=== PATIENT | female | born 1955 | race Caucasian/White ===

== ENCOUNTER 2018-03-04 06:50 | Inpatient (IN) | payer MEDICARE, MEDICAID ==
[2018-03-04] MEDS ORDERED: Sodium Chloride 0.9% 10 ML Syringe FLUSH PRN (07:20)
[2018-03-04 07:52] LABS: CHLORIDE,CL 112 mmol/L (98-107); SODIUM,NA 150 mmol/L (136-145)
[2018-03-04] MEDS ORDERED: Sodium Chloride 0.9% 1,000 ML IV ONE (08:22)
--- NOTE | 2018-03-04 09:10 | EDM.PDOC ---
ED HPI GENERAL MEDICAL PROBLEM - General Chief Complaint: General Stated Complaint: falls, weak, lethargic Time Seen by Provider: 03/04/18 06:55 Source of Information: Reports: EMS, [facility] Records - History of Present Illness INITIAL COMMENTS - FREE TEXT/NARRATIVE: [facility] calls with reports of patient having increased weakness, multpile falls, reduced appetite and general weakness. She does not report chest pain, pressure, shortness of breath, abdominal pain, headache. She normally uses a walker to ambulate, however she is now requiring 2 person transfer. She has history of anoxic brain injury, pacemaker, seizers, anxiety, history of electrolyte imbalances including hypo magnesemia, dementia, schizoaffective disorder, GERD, hyperlipidemia. Her sister is her POA and states that she did have a period where she was suffering lithium toxicity and she was taken off of this completely causing a psychotic episode. This was done in [place] at [facility] and she refuses to allow Summer to be sent there again. Onset: Gradual - Related Data Allergies Allergy/AdvReac Type Severity Reaction Status Date / Time lactose Allergy Other Verified 03/04/18 07:08 Home Meds: Home Meds Acetaminophen [Tylenol] 325 mg PO Q4H PRN 08/11/15 [History] Bisacodyl 10 mg RC ASDIRECTED PRN 08/11/15 [History] Bisacodyl [Dulcolax] 5 mg PO ASDIRECTED PRN 08/11/15 [History] Docusate Sodium 100 mg PO BID 08/11/15 [History] Fluticasone Propionate [Flonase] 0 gm NASBOTH DAILY 08/11/15 [History] LORazepam [Ativan] 0.5 mg PO BID PRN 08/11/15 [History] [place] Carbonate 300 mg PO BID 08/11/15 [History] Loratadine 10 mg PO DAILY 08/11/15 [History] Mag Hydrox/Al Hydrox/Simeth [Rulox] 355 ml PO QID PRN 08/11/15 [History] Magnesium Hydroxide [Milk of Magnesia] 30 ml PO ASDIRECTED PRN 08/11/15 [History ] Magnesium Oxide 500 mg PO BID 08/11/15 [History] OLANZapine [ZyPREXA] 10 mg PO BID 08/11/15 [History] Omeprazole 20 mg PO DAILY 08/11/15 [History] Rivastigmine [Exelon] 1 each TD DAILY 08/11/15 [History] carBAMazepine [TEGretol XR] 300 mg PO DAILY 08/11/15 [History] carBAMazepine [Tegretol XR] 2 tab PO DAILY 08/11/15 [History] cloZAPine 3 tab PO DAILY 08/11/15 [History] lamoTRIgine [Lamotrigine] 300 mg PO BID 08/11/15 [History] Past Medical History Other HEENT History: chronic rhinitis, exophoria Cardiovascular History: Reports: High Cholesterol, Other (See Below) Other Cardiovascular History: bradycardia Gastrointestinal History: Reports: Chronic Constipation, GERD Other Gastrointestinal History: disorder of intestinal carbohydrate absorption Genitourinary History: Reports: Urinary Incontinence Other Neuro History: cognitive impairment, traumatic brain injury, anoxic brain damage, impulse disorder Psychiatric History: Reports: Anxiety, Dementia, Depression, Eating Disorders, Suicide Attempt Other Psychiatric History: schiozoaffective disorder. Conversion disorder. impulse disorder. personality disorder Social & Family History - Tobacco Use Smoking Status *Q: Unknown Ever Smoked ED ROS GENERAL - Review of Systems Review Of Systems: See Below Constitutional: Reports: Decreased Appetite HEENT: Reports: No Symptoms Respiratory: Reports: No Symptoms Cardiovascular: Reports: No Symptoms Endocrine: Reports: No Symptoms GI/Abdominal: Reports: No Symptoms : Reports: No Symptoms Musculoskeletal: Reports: No Symptoms Skin: Reports: No Symptoms Neurological: Reports: Weakness, Other (recent falls) Psychiatric: Reports: No Symptoms Hematologic/Lymphatic: Reports: No Symptoms Immunologic: Reports: No Symptoms ED EXAM, GENERAL - Physical Exam Exam: See Below Exam Limited By: Other (dementia, some history is not accurate) General Appearance: Alert, WD/WN, No Apparent Distress Eye Exam: Bilateral Eye: EOMI, Normal Inspection, PERRL Ears: Normal TMs Nose: Normal Inspection, Normal Mucosa, No Blood Throat/Mouth: Normal Inspection, Normal Lips, Normal Teeth, Normal Gums, Normal Oropharynx, Normal Voice, No Airway Compromise Head: Atraumatic, Normocephalic Neck: Normal Inspection, Supple, Non-Tender, Full Range of Motion Respiratory/Chest: No Respiratory Distress, Lungs Clear, Normal Breath Sounds, No Accessory Muscle Use, Chest Non-Tender Cardiovascular: Normal Peripheral Pulses, Regular Rate, Rhythm, No Edema, No Gallop, No JVD, No Murmur, No Rub GI/Abdominal: Normal Bowel Sounds, Soft, Non-Tender, No Organomegaly, No Distention, No Abnormal Bruit, No Mass Extremities: Normal Inspection, Normal Range of Motion, Non-Tender, Normal Capillary Refill, No Pedal Edema Neurological: Alert, CN II-XII Intact, Abnormal Gait Psychiatric: Normal Affect, Normal Mood Skin Exam: Warm, Dry, Intact, Normal Color, No Rash Lymphatic: No Adenopathy Course - Vital Signs Last Recorded V/S: Last Vital Signs Temp 37.0 C 03/04/18 09:47 Pulse 67 03/04/18 09:47 Resp 16 03/04/18 09:47 BP 147/67 H 03/04/18 09:47 Pulse Ox 98 03/04/18 09:47 - Orders/Labs/Meds Orders: Active Orders 24 hr Category Date Time Status EKG Documentation Completion [RC] URGENT Care 03/04/18 08:16 Active Chest 2V [CR] Stat Exams 03/04/18 08:16 Taken Head wo Cont [CT] Stat Exams 03/04/18 08:16 Taken LITHIUM [REF] Stat Lab 03/04/18 07:16 Received URINALYSIS W/MICROSCOPIC [UA W/MICROSCOPIC] [URIN] Stat Lab 03/04/18 09:02 Ordered Sodium Chloride 0.9% [Saline Flush] Med 03/04/18 07:20 Active 10 ml FLUSH ASDIRECTED PRN Saline Lock Insert [OM.PC] Routine Oth 03/04/18 07:20 Ordered Medication Orders Sodium Chloride (Saline Flush) 10 ml FLUSH ASDIRECTED PRN PRN Reason: Keep Vein Open Labs: Laboratory Tests 03/04/18 03/04/18 03/04/18 Range/Units 07:16 07:16 07:16 WBC 13.8 H (4.0-10.0) x10^3/uL RBC 3.74 L (4.00-5.50) x10^6/uL Hgb 12.1 (12.0-16.0) g/dL Hct 40.1 (33.0-47.0) % MCV 107.2 H (78.0-93.0) fL MCH 32.4 H (26.0-32.0) pg MCHC 30.2 L (32.0-36.0) g/dL RDW Coeff of Neisha 13.0 (10.0-15.0) % Plt Count 328 (130-400) x10^3/uL Add Manual Diff Yes Neutrophils % (Manual) 74 (50-80) % Lymphocytes % (Manual) 13 L (25-50) % Monocytes % (Manual) 10 (2-11) % Eosinophils % (Manual) 3 (0-4) % Platelet Estimate Adequate Hypochromasia 1+ slight H Macrocytosis 1+ slight H Rouleaux 1+ slight H Sodium 150 H (136-145) mmol/L Potassium 3.9 (3.5-5.1) mmol/L Chloride 112 H (98-107) mmol/L Carbon Dioxide 30 (21-32) mmol/L Anion Gap 11.9 (10-20) mmol/L BUN 39 H (7-18) mg/dL Creatinine 1.9 H (0.55-1.02) mg/dL Est Cr Clr Drug Dosing TNP Estimated GFR (MDRD) 27 Glucose 94 (74-106) mg/dL Lactic Acid 1.6 (0.4-2.0) mmol/L Calcium 11.4 H (8.5-10.1) mg/dL Corrected Calcium 11.64 H (8.5-10.1) mg/dL Magnesium 3.3 H (1.8-2.4) mg/dL Total Bilirubin 0.3 (0.2-1.0) mg/dL AST 15 (15-37) U/L ALT 21 (14-59) U/L Alkaline Phosphatase 130 H (46-116) U/L C-Reactive Protein < 0.2 (<=0.9) mg/dL NT-Pro-B Natriuret Pep 90 (<=125) pg/mL Total Protein 7.0 (6.4-8.2) g/dL Albumin 3.7 (3.4-5.0) g/dL Globulin 3.3 Albumin/Globulin Ratio 1.12 TSH, Ultra Sensitive 2.340 (0.358-3.74) uIU/mL Urine Color (YELLOW) Urine Appearance (CLEAR) Urine pH (5.0-8.0) Ur Specific [place] Urine Protein (NEGATIVE) mg/dL Urine Glucose (UA) (NEGATIVE) mg/dL Urine Ketones (NEGATIVE) mg/dL Urine Occult Blood (NEGATIVE) Urine Nitrite (NEGATIVE) Urine Bilirubin (NEGATIVE) Urine Urobilinogen (0.2) EU/dL Ur Leukocyte Esterase (NEGATIVE) Urine RBC (NOT SEEN) /HPF Urine WBC (NOT SEEN) /HPF Ur Squamous Epith Cells (NEGATIVE) /HPF Ur Transition Epith Cell (NEGATIVE) /HPF Urine Bacteria (NEGATIVE) /HPF Urine Mucus (NEGATIVE) /LPF 03/04/18 Range/Units 09:02 WBC (4.0-10.0) x10^3/uL RBC (4.00-5.50) x10^6/uL Hgb (12.0-16.0) g/dL Hct (33.0-47.0) % MCV (78.0-93.0) fL MCH (26.0-32.0) pg MCHC (32.0-36.0) g/dL RDW Coeff of Neisha (10.0-15.0) % Plt Count (130-400) x10^3/uL Add Manual Diff Neutrophils % (Manual) (50-80) % Lymphocytes % (Manual) (25-50) % Monocytes % (Manual) (2-11) % Eosinophils % (Manual) (0-4) % Platelet Estimate Hypochromasia Macrocytosis Rouleaux Sodium (136-145) mmol/L Potassium (3.5-5.1) mmol/L Chloride (98-107) mmol/L Carbon Dioxide (21-32) mmol/L Anion Gap (10-20) mmol/L BUN (7-18) mg/dL Creatinine (0.55-1.02) mg/dL Est Cr Clr Drug Dosing Estimated GFR (MDRD) Glucose (74-106) mg/dL Lactic Acid (0.4-2.0) mmol/L Calcium (8.5-10.1) mg/dL Corrected Calcium (8.5-10.1) mg/dL Magnesium (1.8-2.4) mg/dL Total Bilirubin (0.2-1.0) mg/dL AST (15-37) U/L ALT (14-59) U/L Alkaline Phosphatase (46-116) U/L C-Reactive Protein (<=0.9) mg/dL NT-Pro-B Natriuret Pep (<=125) pg/mL Total Protein (6.4-8.2) g/dL Albumin (3.4-5.0) g/dL Globulin Albumin/Globulin Ratio TSH, Ultra Sensitive (0.358-3.74) uIU/mL Urine Color Light yellow (YELLOW) Urine Appearance Clear (CLEAR) Urine pH 7.0 (5.0-8.0) Ur Specific [place] 1.015 Urine Protein 30 H (NEGATIVE) mg/dL Urine Glucose (UA) Negative (NEGATIVE) mg/dL Urine Ketones Negative (NEGATIVE) mg/dL Urine Occult Blood Trace-intact H (NEGATIVE) Urine Nitrite Negative (NEGATIVE) Urine Bilirubin Negative (NEGATIVE) Urine Urobilinogen 0.2 (0.2) EU/dL Ur Leukocyte Esterase Trace H (NEGATIVE) Urine RBC 0-5 (NOT SEEN) /HPF Urine WBC 0-5 (NOT SEEN) /HPF Ur Squamous Epith Cells Rare (NEGATIVE) /HPF Ur Transition Epith Cell Rare H (NEGATIVE) /HPF Urine Bacteria Rare (NEGATIVE) /HPF Urine Mucus Not seen (NEGATIVE) /LPF Meds: Medications Generic Name Dose Route Start Last Admin Trade Name Freq PRN Reason Stop Dose Admin Sodium Chloride 10 ml 03/04/18 07:20 Saline Flush FLUSH ASDIRECTED PRN Keep Vein Open Discontinued Medications Generic Name Dose Route Start Last Admin Trade Name Freq PRN Reason Stop Dose Admin Sodium Chloride 1,000 mls @ 999 mls/hr 03/04/18 08:22 03/04/18 08:51 Normal Saline IV 03/04/18 09:22 999 mls/hr ONETIME ONE Administration Departure - Departure Time of Disposition: 09:50 Disposition: Admitted As Inpatient 65 Condition: Good Clinical Impression: Dehydration, Acute hypernatremia, Hypermagnesemia - Discharge Information ED Communication - Discussed Case With (1) Discussed Case With (1): Admitting Provider (Dr. Gramajo contacted. He will admit the patient inpatient with Dr. Galvez to assume care tomorrow) - My Orders Last 24 Hours: My Active Orders 03/04/18 07:16 LITHIUM [REF] Stat 03/04/18 07:20 Sodium Chloride 0.9% [Saline Flush] 10 ml FLUSH ASDIRECTED PRN Saline Lock Insert [OM.PC] Routine 03/04/18 08:16 EKG Documentation Completion [RC] URGENT Chest 2V [CR] Stat Head wo Cont [CT] Stat 03/04/18 09:02 URINALYSIS W/MICROSCOPIC [UA W/MICROSCOPIC] [URIN] Stat - Assessment/Plan Last 24 Hours: My Active Orders 03/04/18 07:16 LITHIUM [REF] Stat 03/04/18 07:20 Sodium Chloride 0.9% [Saline Flush] 10 ml FLUSH ASDIRECTED PRN Saline Lock Insert [OM.PC] Routine 03/04/18 08:16 EKG Documentation Completion [RC] URGENT Chest 2V [CR] Stat Head wo Cont [CT] Stat 03/04/18 09:02 URINALYSIS W/MICROSCOPIC [UA W/MICROSCOPIC] [URIN] Stat
[2018-03-04] MEDS ORDERED: [UNRECOGNIZED DRUG - OTHER] TOP PRN (11:13)
[2018-03-04] MEDS ORDERED: EUCALYPTUS OIL TOP PRN (11:13)
[2018-03-04] MEDS ORDERED: CAMPHOR TOP PRN (11:13)
[2018-03-04] MEDS ORDERED: Bisacodyl 10 MG Supp RECTAL PRN (11:13)
[2018-03-04] MEDS ORDERED: Acetaminophen 325 MG Tab PO PRN (11:13)
[2018-03-04] MEDS ORDERED: Sodium Chloride 0.65% Nasal Spray 45 ML Bottle NASBOTH PRN (11:13)
[2018-03-04] MEDS ORDERED: MENTHOL TOP PRN (11:13)
[2018-03-04] MEDS ORDERED: Bisacodyl 5 MG Tab PO PRN (11:13)
[2018-03-04] MEDS ORDERED: LAMOTRIGINE 300 MG PO SCH ×2 (11:32→20:00)
[2018-03-04] MEDS ORDERED: Loperamide 2 MG Cap PO PRN (12:06)
[2018-03-04] MEDS: Sodium Chloride 0.9% 1,000 ML IV SCH ×2 (12:30→19:26)
[2018-03-04] MEDS: LORazepam 0.5 MG Tab PO SCH ×2 (12:31→19:56)
[2018-03-04] MEDS: Acetaminophen 325 MG Tab PO SCH ×2 (12:31→19:53)
[2018-03-04] MEDS: OLANZapine 10 MG Tab PO SCH (12:31)
[2018-03-04] MEDS: Enoxaparin 30 MG/0.3 ML Syringe SUBCUT SCH (12:31)
[2018-03-04] MEDS: Loratadine 10 MG Tab PO SCH (12:31)
--- NOTE | 2018-03-04 13:51 | HP ---
REASON FOR ADMISSION: Lethargy and increasing falls. HISTORY OF PRESENT ILLNESS: A 62-year-old white female, who is a resident of the Special Care Unit at the [facility] in [place]. Staff has noted increasing frequency of falls. Finding her on the floor frequently for no apparent cause. Staff, family, and the patient also note that she has been on some type of a fast and not taking as much fluids recently as in the past. The patient says her appetite is good. The patient was assessed in the ED and given 1 liter of normal saline in the emergency department. PAST MEDICAL HISTORY: Obtained from the old records and is significant for psychiatric issues and it includes: 1. Anoxic brain injury. 2. Major depressive disorder and action of both impulse disorder, unspecified. 3. Generalized anxiety disorder. 4. Traumatic brain injury. 5. Conversion disorder with seizures or convulsions. 6. Unspecified dementia with behavioral disturbances. 7. Schizoaffective disorder with bipolar type. 8. Eating disorder, unspecified. 9. Personality disorder, unspecified. 10.Lactose intolerance. 11.Bradycardia with pacemaker. 12.Hypermagnesemia. 13.Chronic rhinitis. 14.GERD. 15.Hyperlipidemia. 16.Orthostatic hypotension. MEDICATIONS: Vicks VapoRub p.r.n., Zyprexa 10 mg daily, milk of magnesia p.r.n., Tylenol b.i.d. and p.r.n., carbamazepine 200 mg 2 tablets daily, carbamazepine 300 mg daily, saline nasal spray, antacids, lamotrigine 300 mg b.i.d., magnesium oxide 500 mg b.i.d., loratadine 10 mg daily, lithium carbonate 300 mg b.i.d., Imodium p.r.n., Exelon patch daily, dose unknown, clozapine 300 mg daily, calcium with vitamin D b.i.d., dulcolax either p.o. or rectally p.r.n., lorazepam 0.5 mg b.i.d. p.r.n., and basis soap p.r.n. ALLERGIES AND INTOLERANCES: Lactose. The patient's sister is present, Sandi Tobar. She is the POA. REVIEW OF SYSTEMS: The patient denies headache. Does have chronic rhinitis. No chest pain. No shortness of breath. No cough. Denies any abdominal discomfort. No change in bowel or bladder habits. No numbness or tingling. Denies weakness or edema. OBJECTIVE: General: She is alert, lying in bed. Vital Signs: Weight is 141, temperature is 98.6, pulse of 67, blood pressure is 147/67, respirations are 16, and O2 saturation 98% on room air. HEENT: Pupils unremarkable. TMs negative. Throat clear. Neck: No adenopathy. Heart: Regular rate and rhythm. No murmur. Lungs: Clear to auscultation. Back: Nontender. No CVA tenderness. Abdomen: Soft and nontender. No masses. No hepatosplenomegaly. Normoactive bowel sounds. Pelvic and Rectal: Not done. Extremities: Moves all 4 extremities. There is no edema. Neurologic: Motor and sensory functions are intact. LABORATORY DATA: White count 13.8, hemoglobin 12.1. Sodium is 150, chloride 112, potassium of 3.9, BUN of 39, creatinine 1.9. Lactic acid is normal at 1.6, glucose 94, calcium is elevated at 11.6, magnesium elevated at 3.3. LFT's are normal except for mildly elevated alkaline phosphatase of 130. CRP is normal. ProBNP is normal. Albumin is normal. TSH is normal at 2.34. Urinalysis unremarkable. Chest x-ray showed no acute findings. CT Scan of head because of increased falls was negative. EKG showed atrial pacing. ASSESSMENT: 1. The patient with increasing falls, lethargy, and fatigue felt secondary to dehydration. 2. Hypernatremia. 3. Hypermagnesemia. 4. Hypercalcemia. PLAN: The patient will be placed on acute care status. Dr. Galvez is her primary provider. He will assume care in the morning. She is a code level 2 DNR/DNI. We will give her some IV fluids of normal saline. We will hold all of magnesium and calcium containing products. Check a lithium level and a PTH level and repeat her labs in the morning. Her sister, the POA, reports that the patient has had similar problems a few years ago and she was noted to have significantly elevated calcium at that time and her lithium level was held at that time because of that as lithium can cause hyperparathyroidism. But the patient's psychiatric symptoms became much worse off the lithium and the sister did not want that done again, although we could decrease the lithium doses if needed. FM: 03/04/2018 11:37:31 MODL: 03/04/2018 13:44:47 /[id number]
[2018-03-04] MEDS: RIVASTIGMINE TD SCH (13:54)
[2018-03-04] MEDS: LITHIUM CARBONATE 300 MG PO SCH ×2 (13:54→19:59)
[2018-03-04] MEDS: lamoTRIgine 100 MG Tab PO SCH ×2 (13:55→19:52)
[2018-03-04] MEDS: carBAMazepine 100 MG Cap.ER PO SCH ×2 (13:55→19:54)
[2018-03-04] MEDS ORDERED: LITHIUM CARBONATE 300 MG PO SCH (20:00)
[2018-03-04] MEDS ORDERED: LORazepam 0.5 MG Tab PO SCH (20:00)
[2018-03-04] MEDS: CLOZAPINE 50 MG PO SCH (20:00)
[2018-03-04] MEDS ORDERED: Acetaminophen 325 MG Tab PO SCH (20:00)
[2018-03-04] MEDS: CLOZAPINE 25 MG PO SCH (20:02)
[2018-03-05] MEDS: Sodium Chloride 0.9% 1,000 ML IV SCH (02:08)
[2018-03-05] MEDS ORDERED: CARBAMAZEPINE 300 MG PO SCH (08:00)
[2018-03-05] MEDS ORDERED: carBAMazepine 100 MG Cap.ER PO SCH (08:00)
[2018-03-05] MEDS ORDERED: RIVASTIGMINE TD SCH (08:00)
[2018-03-05] MEDS ORDERED: CARBAMAZEPINE PO SCH (08:00)
[2018-03-05] MEDS ORDERED: CLOZAPINE 300 MG PO SCH (08:00)
[2018-03-05] MEDS ORDERED: Loratadine 10 MG Tab PO SCH (08:00)
[2018-03-05] MEDS ORDERED: OLANZapine 10 MG Tab PO SCH (08:00)
[2018-03-05] MEDS: LORazepam 0.5 MG Tab PO SCH ×2 (08:57→20:14)
[2018-03-05] MEDS: Loratadine 10 MG Tab PO SCH (08:58)
[2018-03-05] MEDS: lamoTRIgine 100 MG Tab PO SCH ×2 (08:58→20:13)
[2018-03-05] MEDS: carBAMazepine 100 MG Cap.ER PO SCH ×2 (08:59→20:11)
[2018-03-05] MEDS: OLANZapine 10 MG Tab PO SCH (08:59)
[2018-03-05] MEDS: LITHIUM CARBONATE 300 MG PO SCH ×2 (09:00→20:27)
[2018-03-05] MEDS: Acetaminophen 325 MG Tab PO SCH ×2 (09:00→20:12)
[2018-03-05] MEDS: RIVASTIGMINE TD SCH (09:01)
--- NOTE | 2018-03-05 09:09 | PN ---
Progress Note for RENNY GONZALES Date: 03/05/2018 Room #: VM.218 SUBJECTIVE: Hospital day #2 on a 62-year-old with a history of traumatic brain injury, admitted for lethargy, weakness and increasing falls. The patient tells me it was because of the season and she knows the season is spring that she was falling more and not feeling like eating or drinking. She fell this AM at the hospital but did not have any injury she was trying to get to the bathroom per her nurse. She states she was really weak over the last few days. When she was brought to the emergency room, she was found to have acute renal failure. Creatinine up to 1.9 recently 1.28 in the clinic. Sodium 150. Calcium high at 11.4. She was not having any fever or chills. No cough. No shortness of breath. She denies any pain other than some stiffness in her arm where the IV is at. OBJECTIVE: Vital Signs: Her temperature is 98, pulse 83, blood pressure 163/68, respiratory rate 18, and O2 of 100% on room air. General: She is in no acute distress. Heart: Regular rate and rhythm. S1, S2 without murmur. Lungs: Sounds are clear to auscultation bilaterally without crackles or wheezes. Abdomen: Positive bowel sounds. Soft and nontender. Extremities: Warm and dry. No edema. Mental Status: She is alert. She is orientated x3. LABORATORY DATA: Today, PTH is pending. [place] level pending. Otherwise white count improved to 11.7, hemoglobin 11.7, and platelets 280. Sodium 159, potassium 4.3, chloride 124, bicarb 26, BUN 22, creatinine down to 1.5, calcium down to 9.9, magnesium down from 3.3 to 2.5. She was on supplements. UA was negative for infection. ASSESSMENT AND PLAN: 1. Severe hypercalcemia, likely due to dehydration and supplements. PTH level is pending. This resolved with IV fluids. 2. Hypernatremia, worsening with normal saline. We will switch her over to half-normal saline per calculation, will go down to 75 mL/h. She is on [place] recently was 148 in the clinic. 3. Hypermagnesemia, improving. 4. History of traumatic brain injury. The patient appears to be mentating okay. She did talk about living at the [facility], but she is aware after redirection that she is at [facility] now. 5. hx of Seizures 6. Depression and generalized anxiety disorder with schizoaffective disorder. The patient will remain on her home medications from the [facility], which does include lithium. If the level is elevated, we will make adjustments. She is also on clozapine and Zyprexa and rivastigmine. She is on Tegretol and Lamictal as well and I will contact Psychiatry when levels return to further discuss if any changes are needed. She has not had any behaviors. She is on Lovenox for DVT prophylaxis. PT to eval and treat given her recent fall expect she may be able to return to the [facility] tomorrow MKA: 03/05/2018 08:49:30 MODL: 03/05/2018 09:03:39 /[id number] MTDD
[2018-03-05] MEDS: Enoxaparin 30 MG/0.3 ML Syringe SUBCUT SCH (09:46)
[2018-03-05] MEDS: Sodium Chloride 0.45% 1,000 ML IV SCH ×2 (09:50→22:37)
[2018-03-05] MEDS: CLOZAPINE 25 MG PO SCH (20:26)
[2018-03-05] MEDS: CLOZAPINE 50 MG PO SCH (20:27)
[2018-03-06] MEDS ORDERED: AMILORIDE 5 MG PO SCH (08:30)
--- NOTE | 2018-03-06 08:41 | PN ---
Progress Note for RENNY GONZALES Date: 03/06/2018 Room #: VM.218 SUBJECTIVE: This is hospital day #3 on a 62-year-old admitted with dehydration and hypercalcemia. Calcium levels have went up slightly today to 10.4. I reviewed her records over the last year. She has had numerous calciums in the 11 range. More concerning yesterday as her sodium went from 150 to 159 and even though she has been on lithium, she has not had that high of readings. She otherwise has been changed to half-normal saline yesterday. She had good oral intake. She was eating 75-100% of her meals. She states she has been having diarrhea, but that is always the case every time she voids, she went 4 times during the night. She denies any abdominal pain. She denies any burning with urination. Her only symptom is double vision that just started abruptly actually when I was visiting with her around 8 a.m. this morning. She has no headache and no trouble breathing. No cough. No fevers. She is on multiple psychotropic medications like 6 of them, was quite on stable during the night. She has not had any behaviors. OBJECTIVE: Vital Signs: Her temperature is 98.3, pulse is 76, blood pressure 133/69, respiratory rate 18, O2 97% on room air. General: She is in no acute distress. Heart: Regular rate and rhythm. Lungs: Sounds are clear to auscultation bilaterally without crackles or wheezes. Abdomen: Has positive bowel sounds. Soft and nontender. Extremities: Warm and dry. No edema. Mental Status: She is alert. She is orientated x3. She is aware she is at the hospital. LABORATORY DATA: Lab work did show her lithium level to have returned within the normal range at 1.03. PTH is still pending. Sodium 159, potassium 4.1, chloride 125, bicarb 28, BUN 17, creatinine 1.5 same as yesterday, baseline around 1.2, glucose 105, calcium 10.4. White count went up to 13.7, hemoglobin 11.2, platelets 295. ASSESSMENT AND PLAN: 1. 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 Urine osmolality will be sent off. We will try her on some amiloride. I will increase her half-normal saline to 100 mL/h and recheck tomorrow. 2. Hypercalcemia, stable. We will repeat tomorrow. 3. Somnolence due to psychotropic medications. I will discuss medication adjustments with Psychiatry today, particularly decreasing lithium due to starting amiloride. 4. Diarrhea. She did have some hypermagnesemia, but has been off supplements. She is on only p.r.n. bowel regimen and has not been on any recent antibiotics, but due to increasing white count, we will check a Clostridium difficile. 5. History of traumatic brain injury. The patient appears to be mentating near her baseline. 6. History of seizure. She will continue her home medications. 7. Depression and anxiety with underlying schizoaffective disorder. She is on multiple psychotropic medications. PLAN: At this point, patient will continue acute cares. We will increase half- normal saline. We will repeat lab work tomorrow. We will start her on amiloride and check for Clostridium difficile. MKA: 03/06/2018 08:19:55 MODL: 03/06/2018 08:36:09 /[id number]
[2018-03-06] MEDS: Loratadine 10 MG Tab PO SCH (08:44)
[2018-03-06] MEDS: lamoTRIgine 100 MG Tab PO SCH ×2 (08:44→20:23)
[2018-03-06] MEDS: Enoxaparin 30 MG/0.3 ML Syringe SUBCUT SCH (08:45)
[2018-03-06] MEDS: carBAMazepine 100 MG Cap.ER PO SCH ×2 (08:46→20:19)
[2018-03-06] MEDS: LITHIUM CARBONATE 300 MG PO SCH ×2 (08:47→20:24)
[2018-03-06] MEDS: Acetaminophen 325 MG Tab PO SCH ×2 (08:48→20:21)
[2018-03-06] MEDS: OLANZapine 10 MG Tab PO SCH (08:49)
[2018-03-06] MEDS: RIVASTIGMINE TD SCH (08:50)
[2018-03-06] MEDS: LORazepam 0.5 MG Tab PO SCH ×2 (08:50→20:20)
[2018-03-06] MEDS: Sodium Chloride 0.45% 1,000 ML IV SCH ×2 (12:18→23:47)
[2018-03-06] MEDS: CLOZAPINE 25 MG PO SCH (20:25)
[2018-03-06] MEDS: CLOZAPINE 50 MG PO SCH (20:25)
[2018-03-07] MEDS ORDERED: Hydrochlorothiazide 25 MG Tab PO SCH (08:00)
[2018-03-07] MEDS: LORazepam 0.5 MG Tab PO SCH (09:02)
[2018-03-07] MEDS: Loratadine 10 MG Tab PO SCH (09:03)
[2018-03-07] MEDS: lamoTRIgine 100 MG Tab PO SCH (09:04)
[2018-03-07] MEDS: LITHIUM CARBONATE 300 MG PO SCH (09:05)
[2018-03-07] MEDS: carBAMazepine 100 MG Cap.ER PO SCH (09:06)
[2018-03-07] MEDS: Acetaminophen 325 MG Tab PO SCH (09:07)
[2018-03-07] MEDS: RIVASTIGMINE TD SCH (09:08)
[2018-03-07] MEDS: Enoxaparin 30 MG/0.3 ML Syringe SUBCUT SCH (09:08)
[2018-03-07] MEDS: OLANZapine 10 MG Tab PO SCH (09:08)
--- NOTE | 2018-03-07 15:39 | DISCH ---
PRIMARY DISCHARGE DIAGNOSES: 1. Hypercalcemia with dehydration. 2. Acute renal failure, probably related to poor oral intake in the setting of hypernatremia and hypercalcemia. Creatinine improved from 1.9 down to 1.4 on discharge, baseline 1.2 or better. 3. 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 Urine osmolality was actually low. Started on hydrochlorothiazide with sodium improved via the half-normal saline and hydrochlorothiazide down to 154 on discharge. 4. Intermittent diarrhea. No stools within 24 hours. No antibiotics for 6 months. Clostridium difficile testing cancelled. 5. Some somnolence due to psychotropic medications. She is mentating better this morning. Discussed with Psychiatry. They will check a lithium level next week and make adjustments as needed. [place] level was normal during her stay. 6. Hypercalcemia. PTH pending. 7. History of traumatic brain injury. 8. History of seizures. 9. History of anxiety, depression, and schizoaffective disorder. REASON FOR ADMISSION: On the date of admission, this 62-year-old female was brought into the hospital due to not feeling well, getting weak, not [facility]. She had some falls. She was placed on normal saline, but by the next day, her sodium went up to 159; however, her calcium which had been over 11 previously in the clinic did improve down to 9.9 and she was feeling better. She had no fevers, but her white count did go up to 13,000. She had no cough. She had a chest x-ray that was normal. She had a head CT that looked okay. Her fluids were switched over to half-normal saline and adjusted. Her blood pressure was actually running high, but she was not having any swelling. No shortness of breath. No coughing. She was actually a quite considerably elevated fluid balance of like 5 L, but by discharge, she was producing more urine. Otherwise, the patient had no problems with behavior. She did have a fall during her hospital stay, trying to get to the bathroom, but no injury. DISCHARGE PLANS AND INSTRUCTIONS: She will follow up with Dr. Galvez on her next [facility] rounds. She will be started on hydrochlorothiazide 25 mg daily. No medication adjustments for psychotropic medications were made, but a lithium and BMP level will be done next week with results also sent to Dr. Patel. She will have PT, OT at the prison. If she continues to have problems with her sodium and calcium, I do recommend a referral to Nephrology. It sounds like her family is completely against taking her off the lithium. Otherwise, she should be drinking at least 64 ounces of water per day. DISCHARGE PHYSICAL EXAMINATION: Vital Signs: Discharge vitals included temperature 98.2, pulse 63, blood pressure 144/78, respiratory rate 18, and O2 of 94% on room air. General: She is in no acute distress. Heart: Regular rate and rhythm. S1 and S2 without murmur. Lungs: Sounds are decreased slightly over the left base with some faint crackles. No wheezing. Right base is clear. Abdomen: Positive bowel sounds. Soft and nontender. Extremities: Warm and dry. No edema. Mental Status: Alert and orientated x3. Greater than 30 minutes spent on the discharge process. MKA: 03/07/2018 13:37:40 MODL: 03/07/2018 15:02:57 /[id number]
== END 2018-03-07 09:30 | DRG 683 ==
LOC: VM.ED 06:50 → VM.MS 09:32
PROVIDERS: ADMIT Family Medicine; ATTEND Family Medicine
DX: N17.9 Acute kidney failure, unspecified (principal); E87.0 Hyperosmolality and hypernatremia; E86.0 Dehydration; E83.41 Hypermagnesemia; E83.52 Hypercalcemia; K59.09 Other constipation; F41.9 Anxiety disorder, unspecified; F03.90 Unspecified dementia, unspecified severity, without behavioral disturbance, psychotic disturbance, mood disturbance, and anxiety; R32 Unspecified urinary incontinence; R53.1 Weakness; R29.6 Repeated falls; Z66 Do not resuscitate; R56.9 Unspecified convulsions; F25.9 Schizoaffective disorder, unspecified; J31.0 Chronic rhinitis; F41.1 Generalized anxiety disorder; F32.9 Major depressive disorder, single episode, unspecified; N25.1 Nephrogenic diabetes insipidus; K21.9 Gastro-esophageal reflux disease without esophagitis; Z87.820 Personal history of traumatic brain injury; E78.5 Hyperlipidemia, unspecified; R40.0 Somnolence; T43.95XA Adverse effect of unspecified psychotropic drug, initial encounter; R19.7 Diarrhea, unspecified; I95.1 Orthostatic hypotension; Z79.899 Other long term (current) drug therapy; T43.595A Adverse effect of other antipsychotics and neuroleptics, initial encounter; Z95.0 Presence of cardiac pacemaker
CPT/HCPCS: 36415; 70450; 71046; 80053; 80178; 81001; 83605; 83735; 83880; 83970; 84443; 85025; 86140; 93005; 96360; 99285 ×2; J7030; 80048; 83935; 97116-GP; 97161-GP; A9270-GY; J1650

== ENCOUNTER 2018-04-18 06:57 | Day surgery (SDC) | payer MEDICARE, MEDICAID ==
[~2018-04-18 06:57] MED LIST: Lactated Ringers 1,000 ML IV SCH
[2018-04-18] MEDS ORDERED: Citric Acid/Sodium Citrate Solution 30 ML Cup PO ONE (08:03)
[2018-04-18] MEDS ORDERED: Propofol 200 MG/20 ML SDV ONE ×4 (08:39→10:12)
--- NOTE | 2018-04-18 16:38 | OR ---
DATE OF SURGERY: 04/18/2018. REFERRING PROVIDER: Angel Galvez M.D. PREOPERATIVE DIAGNOSES: History of colon polyps. The patient's last colonoscopy in 2011 was normal. She did have 9 polyps in 2010 as well as additional polyps back in 2007 including history of tubulovillous polyp. POSTOPERATIVE DIAGNOSES: 1. Total of 7 polyps removed (5 hot snares, 1 cold snare, and 1 cold forceps). a. Main polyp was a large 2 cm sessile polyp at 65 cm which was near hepatic flexure. This was removed using multiple hot snares. This was located just around the corner near the hepatic flexure and the area was tattooed with ink. b. A 4 mm cecal polyp, removed with cold snare. c. A 5 mm, 4 mm, and 2 mm at 70 cm, removed with hot snare. d. A 2 mm at 55 cm, removed with cold forceps. e. A 4 mm polyp at 45 cm, removed with hot snare. 2. The patient had quite redundant colon making the above measurements from the anal verge inconsistent. PROCEDURE: Procedure colonoscopy with polypectomy x7 (1 cold snare, 5 hot snares, and 1 cold forceps). SURGEON: Timur Mercedes M.D. ANESTHESIA: Monitored anesthesia care. BOWEL PREP: OkayAmi Palmer is a 62-year-old female, who was brought to the endoscopy suite after discussing risks and benefits of the procedure. Informed consent was obtained for conscious sedation and colonoscopy with or without biopsy and/or polypectomy. We also discussed possibility of missed lesions. Pre-procedure exam was unremarkable. IV, oxygen, and monitors were placed. The patient was placed in the left lateral decubitus position. Sedation was administered and a digital rectal exam was performed which was unremarkable. Colonoscope was passed into the rectum and slowly advanced all the way to the cecum. The patient did have quite redundant colon. Cecum was viewed and photographed. Cecum was viewed and photographed. She did have a 4 mm cecal polyp noted which was removed using cold snare. The ascending colon revealed a collection of small polyps at 70 cm, measuring 5 mm, 4 mm, and 2 mm in size. These were all removed using hot snare. Near the hepatic flexure fold, the patient was noted to have a large 2 cm white based a sessile-type polyp, which was photographed. This required multiple passes using the hot snare. I did have to retrieve the larger pieces by coming out with the scope, total of 3 separate times. This area was difficult to maneuver the scope and get a good view of the polyp base. This area was tattooed with ink in quadrants. The patient's redundant colon did make the measurements from the anal verge very inconsistent. The transverse colon was remarkable for a 2 mm polyp at 55 cm and 4 mm at 45 cm. The descending and sigmoid colons were unremarkable. Retroflexion was performed. Rectal mucosa unremarkable. COMPLICATIONS: None. TOTAL TIME: Extended period time spent of 85 minutes as basically repeated under scope 4 times in order to retrieve all the different pieces. The larger sessile polyp near the hepatic flexure was also difficult access in view given its location. ESTIMATED BLOOD LOSS: 2-3 mL. RECOMMENDATIONS/FOLLOW-UP: We will await results of path report to determine the need for early followup versus referral to possible Colorectal Surgery if path is more advanced. We will have the patient avoid any aspirin for the next week. She is to keep stool soft and we will have chcf monitor vitals along with temp daily for the next week and to notify PCP if any fevers develop or any vital sign instability. I would like to kindly thank Dr. Galvez for this referral. DMB: 04/18/2018 11:12:05 MODL: 04/18/2018 16:32:58 /[id number]
== END 2018-04-18 11:54 ==
LOC: VM.SDS 06:57
PROVIDERS: ATTEND Family Medicine
DX: Z12.11 Encounter for screening for malignant neoplasm of colon (principal); D12.0 Benign neoplasm of cecum; D12.2 Benign neoplasm of ascending colon; D12.3 Benign neoplasm of transverse colon; Z87.891 Personal history of nicotine dependence; E73.9 Lactose intolerance, unspecified; E78.5 Hyperlipidemia, unspecified; E83.52 Hypercalcemia; F03.90 Unspecified dementia, unspecified severity, without behavioral disturbance, psychotic disturbance, mood disturbance, and anxiety; F31.9 Bipolar disorder, unspecified; M81.0 Age-related osteoporosis without current pathological fracture; K21.9 Gastro-esophageal reflux disease without esophagitis; Z79.899 Other long term (current) drug therapy; Z86.010 Personal history of colon polyps
CPT/HCPCS: 00811; 45380; 45381; 45385; J2704; J7120; 88305

== ENCOUNTER 2018-12-30 11:54 | Inpatient (IN) | payer MEDICARE, MEDICAID ==
[2018-12-30] MEDS ORDERED: Sodium Chloride 0.9% 10 ML Syringe FLUSH PRN (12:01)
[2018-12-30] MEDS ORDERED: Ondansetron 4 MG/2 ML SDV IV PRN (12:41)
[2018-12-30] MEDS ORDERED: Bisacodyl 10 MG Supp RECTAL PRN (13:15)
[2018-12-30] MEDS ORDERED: traMADol 50 MG Tab PO PRN (13:15)
[2018-12-30] MEDS ORDERED: Loperamide 2 MG Cap PO PRN (13:15)
[2018-12-30] MEDS ORDERED: Bisacodyl 5 MG Tab PO PRN (13:15)
[2018-12-30 13:57] LABS: ANION GAP 15.7 mmol/L (10-20)
--- NOTE | 2018-12-30 14:12 | CR ---
[id number] RAD/RAD Chest PA or AP 1V EXAM: SINGLE VIEW CHEST. INDICATION: WEAKNESS COMPARISON: CORRELATION IS MADE WITH THE EXAM OF MARCH 04, 2018. FINDINGS: The lungs are clear. The cardiomediastinal contour is stable. The pacemaker is seen. IMPRESSION: NO PNEUMONIA OR EDEMA. Kojo Chavez MD 12/30/18 [id number] Thank you for allowing us to participate in the care of your patient.
[2018-12-30] MEDS: Sodium Chloride 0.9% 1,000 ML IV SCH ×2 (14:28→20:24)
--- NOTE | 2018-12-30 17:18 | PCM.CONS ---
H&P History of Present Illness - General Date of Service: 12/30/18 Admit Problem/Dx: Admission Diagnosis/Problem Admission Diagnosis/Problem Chronic kidney disease Source of Information: Patient History Limitations: Reports: No Limitations - History of Present Illness Initial Comments - Free Text/Narative: Patient is a 63-year-old female with a history of hypercalcemia, chronic lithium usage, stage 4 chronic kidney disease, dementia, and anoxic brain injury. She was admitted to the hospital on 12/30/2018 for hypercalcemia and hypernatremia. She has chronic hypercalcemia, likely due to lithium use. [place] levels are critical at 1.55. Internal medicine consult for management of electrolyte abnormalities. Patient has a cough but is denies shortness of breath. Was treated with Doxycycline recently but CXR on admit was normal. She is not having diarrhea but admits she hasn't been eating and drinking well. Cr was 1.7 a couple weeks ago and is 1.8 today baseline around 1.4. She is fatigued and is unable to maintain concentrations. This may be due to her chronic condition and brain injury. Onset of Symptoms: Reports: Today Symptom Onset Date: 12/30/18 Duration of Symptoms: Reports: Day(s): Location: Reports: Generalized Improves with: Reports: None Worsens with: Reports: None Associated Symptoms: Reports: Confusion, Weakness - Related Data Allergies/Adverse Reactions: Allergies Allergy/AdvReac Type Severity Reaction Status Date / Time lactose Allergy Other Verified 04/18/18 08:25 Home Medications: Home Meds Bisacodyl 10 mg RC Q12HR PRN 08/11/15 [History] Bisacodyl [Dulcolax] 5 mg PO DAILY PRN 08/11/15 [History] Loratadine 10 mg PO DAILY 08/11/15 [History] Rivastigmine [Exelon] 1 patch TD DAILY 08/11/15 [History] cloZAPine 400 mg PO DAILY 08/11/15 [History] Acetaminophen [Tylenol] 650 mg PO BID MDD 3 grams in 24 hours 03/04/18 [History] Calcium Citrate/Vitamin D3 [Calcium Citrate - Vit D Tablet] 1 tab PO BIDMEALS [History] Loperamide HCl [Imodium A-D] 2 mg PO ASDIRECTED PRN MDD 4 tabs Q24HR 03/04/18 [ History] Docusate Sodium [Colace] 200 mg PO DAILY 04/16/18 [History] Acetaminophen 325 mg PO Q4H PRN MDD 3 grams in 24 hours 12/30/18 [History] Doxycycline [Doxycycline Monohydrate] 100 mg PO BID 12/30/18 [History] Eucalyptus Oil/Menthol/Camphor [Vicks Vaporub Ointment] 1 applic TOP BID PRN [History] LORazepam 0.5 mg PO BID 12/30/18 [History] [place] Carbonate [[place] Carbonate ER] 450 mg PO DAILY 12/30/18 [History] Mag Hydrox/Al Hydrox/Simeth [Rulox] 30 ml PO QID PRN 12/30/18 [History] Magnesium Hydroxide [Milk of Magnesia] 30 ml PO ASDIRECTED PRN 12/30/18 [History ] Sodium Chloride [Saline Nasal [place]] 2 spray NASBOTH Q4H PRN 12/30/18 [History] aMILoride [Midamor] 5 mg PO DAILY 12/30/18 [History] carBAMazepine [Carbamazepine ER] 300 mg PO DAILY 12/30/18 [History] carBAMazepine [Carbamazepine ER] 400 mg PO BEDTIME 12/30/18 [History] lamoTRIgine [Lamotrigine] 300 mg PO BID 12/30/18 [History] Past Medical History HEENT History: Reports: Allergic Rhinitis Other HEENT History: chronic rhinitis, exophoria Cardiovascular History: Reports: High Cholesterol, Pacemaker, Other (See Below) Other Cardiovascular History: bradycardia. ORTHOSTATIC HYPOTENTION Respiratory History: Reports: Other (See Below) Other Respiratory History: SNORING Gastrointestinal History: Reports: Chronic Constipation, Colon Polyp, GERD Other Gastrointestinal History: disorder of intestinal carbohydrate absorption. LACTOSE INTOLERANCE Genitourinary History: Reports: Urinary Incontinence Neurological History: Reports: Seizure Other Neuro History: cognitive impairment, traumatic brain injury, anoxic brain damage, impulse disorder, ENCEPHALOPATHY Psychiatric History: Reports: Anxiety, Bipolar, Dementia, Depression, Eating Disorders, OCD, Psychosis, Suicide Attempt Other Psychiatric History: schiozoaffective disorder. Conversion disorder. impulse disorder. personality disorder Endocrine/Metabolic History: Reports: Osteoporosis Hematologic History: Reports: Anemia, Other (See Below) Other Hematologic History: hypomagnesemia Oncologic (Cancer) History: Reports: Basal Cell Carcinoma - Past Surgical History HEENT Surgical History: Reports: Tonsillectomy GI Surgical History: Reports: Colonoscopy Social & Family History - Family History Family Medical History: Noncontributory - Tobacco Use Smoking Status *Q: Unknown Ever Smoked Second Hand Smoke Exposure: No - Caffeine Use Caffeine Use: Reports: Coffee - Recreational Drug Use Recreational Drug Use: No H&P Review of Systems - Review of Systems: Review Of Systems: See Below General: Reports: Weakness, Fatigue, Decreased Appetite, Weight Loss. Denies: Fever, Chills HEENT: Reports: No Symptoms Pulmonary: Reports: Cough. Denies: Shortness of Breath, Wheezing, Pleuritic Chest Pain Cardiovascular: Denies: Chest Pain, Palpitations, Dyspnea on Exertion Gastrointestinal: Reports: No Symptoms Genitourinary: Reports: No Symptoms Musculoskeletal: Reports: No Symptoms Skin: Reports: No Symptoms Psychiatric: Reports: No Symptoms Neurological: Reports: Difficulty Walking. Denies: Dizziness, Headache Hematologic/Lymphatic: Reports: No Symptoms Immunologic: Reports: No Symptoms Exam - Exam Exam: See Below - Vital Signs Vital Signs: Last Vital Signs Temp 98.2 F 12/30/18 17:06 Pulse 74 12/30/18 17:06 Resp 20 12/30/18 17:06 BP 125/60 12/30/18 17:06 Pulse Ox 96 12/30/18 17:06 Weight: 61.598 kg - Exam General: Alert, Oriented, Cooperative HEENT: Conjunctiva Clear Neck: Supple, Trachea Midline Lungs: Clear to Auscultation, Normal Respiratory Effort, Decreased Breath Sounds Cardiovascular: Regular Rate, Regular Rhythm, Systolic Murmur GI/Abdominal Exam: Normal Bowel Sounds, Soft, Non-Tender, No Organomegaly, No Distention, No Mass Extremities: Normal Inspection, No Pedal Edema Skin: Warm, Dry, Intact Neuro Extensive - Mental Status: Alert, Normal Mood/Affect, Other (speech is hard to understand at times) Psychiatric: Alert, Normal Affect, Normal Mood - Patient Data Lab Results Last 24 hrs: Laboratory Results - last 24 hr 12/30/18 12/30/18 12/30/18 Range/Units 12:25 13:11 13:11 WBC 12.8 H (4.0-10.0) x10^3/uL RBC 4.07 (4.00-5.50) x10^6/uL Hgb 12.7 D (12.0-16.0) g/dL Hct 41.4 (33.0-47.0) % MCV 101.7 H D (78.0-93.0) fL MCH 31.2 (26.0-32.0) pg MCHC 30.7 L (32.0-36.0) g/dL RDW Coeff of Neisha 13.6 (10.0-15.0) % Plt Count 412 H D (130-400) x10^3/uL Add Manual Diff Yes Neutrophils % (Manual) 74 (50-80) % Band Neutrophils % 4 (0-6) % Lymphocytes % (Manual) 7 L (25-50) % Monocytes % (Manual) 12 H (2-11) % Basophils % (Manual) 2 H (0-1) % Metamyelocytes % 1 H (0) % Platelet Estimate Adequate Anisocytosis 1+ slight H POC ABG pH (7.35-7.45) POC ABG pCO2 (35-45) mmHG POC ABG pO2 (80-105) mmHG POC ABG HCO3 (22-26) mmol/L POC ABG Total CO2 (23-27) mmol/L POC ABG O2 Sat (95-98) % POC ABG Base Excess (-2-3) mmol/L POC FiO2 Sodium 147 H (136-145) mmol/L Potassium 4.7 (3.5-5.1) mmol/L Chloride 108 H D (98-107) mmol/L Carbon Dioxide 28 (21-32) mmol/L Anion Gap 15.7 (10-20) mmol/L BUN 42 H D (7-18) mg/dL Creatinine 1.8 H (0.55-1.02) mg/dL Est Cr Clr Drug Dosing 27.27 mL/min Estimated GFR (MDRD) 28 Glucose 98 (74-106) mg/dL Lactic Acid (0.4-2.0) mmol/L Calcium 13.0 H* D (8.5-10.1) mg/dL Corrected Calcium 13.40 H* D (8.5-10.1) mg/dL Magnesium (1.8-2.4) mg/dL Total Bilirubin 0.4 (0.2-1.0) mg/dL AST 18 (15-37) U/L ALT 19 (14-59) U/L Alkaline Phosphatase 116 (46-116) U/L C-Reactive Protein 0.3 (<=0.9) mg/dL Total Protein 7.2 (6.4-8.2) g/dL Albumin 3.5 (3.4-5.0) g/dL Globulin 3.7 Albumin/Globulin Ratio 0.95 Urine Color Yellow (YELLOW) Urine Appearance Clear (CLEAR) Urine pH 6.5 (5.0-8.0) Ur Specific [place] 1.020 Urine Protein >=300 H (NEGATIVE) mg/dL Urine Glucose (UA) Negative (NEGATIVE) mg/dL Urine Ketones Negative (NEGATIVE) mg/dL Urine Occult Blood Trace-intact H (NEGATIVE) Urine Nitrite Negative (NEGATIVE) Urine Bilirubin Negative (NEGATIVE) Urine Urobilinogen 0.2 (0.2) EU/dL Ur Leukocyte Esterase Negative (NEGATIVE) Urine RBC 0-5 (NOT SEEN) /HPF Urine WBC 0-5 (NOT SEEN) /HPF Ur Squamous Epith Cells Not seen (NEGATIVE) /HPF Urine Bacteria Rare (NEGATIVE) /HPF Hyaline Casts Rare H (NEGATIVE) /HPF Urine Mucus Rare H (NEGATIVE) /LPF 12/30/18 12/30/18 12/30/18 Range/Units 13:11 13:11 13:27 WBC (4.0-10.0) x10^3/uL RBC (4.00-5.50) x10^6/uL Hgb (12.0-16.0) g/dL Hct (33.0-47.0) % MCV (78.0-93.0) fL MCH (26.0-32.0) pg MCHC (32.0-36.0) g/dL RDW Coeff of [place]isha (10.0-15.0) % Plt Count (130-400) x10^3/uL Add Manual Diff Neutrophils % (Manual) (50-80) % Band Neutrophils % (0-6) % Lymphocytes % (Manual) (25-50) % Monocytes % (Manual) (2-11) % Basophils % (Manual) (0-1) % Metamyelocytes % (0) % Platelet Estimate Anisocytosis POC ABG pH 7.409 (7.35-7.45) POC ABG pCO2 42 (35-45) mmHG POC ABG pO2 71 L (80-105) mmHG POC ABG HCO3 27 H (22-26) mmol/L POC ABG Total CO2 28 H (23-27) mmol/L POC ABG O2 Sat 94 L (95-98) % POC ABG Base Excess 2 (-2-3) mmol/L POC FiO2 0.21 Sodium (136-145) mmol/L Potassium (3.5-5.1) mmol/L Chloride (98-107) mmol/L Carbon Dioxide (21-32) mmol/L Anion Gap (10-20) mmol/L BUN (7-18) mg/dL Creatinine (0.55-1.02) mg/dL Est Cr Clr Drug Dosing mL/min Estimated GFR (MDRD) Glucose (74-106) mg/dL Lactic Acid 1.6 (0.4-2.0) mmol/L Calcium (8.5-10.1) mg/dL Corrected Calcium (8.5-10.1) mg/dL Magnesium 2.4 (1.8-2.4) mg/dL Total Bilirubin (0.2-1.0) mg/dL AST (15-37) U/L ALT (14-59) U/L Alkaline Phosphatase (46-116) U/L C-Reactive Protein (<=0.9) mg/dL Total Protein (6.4-8.2) g/dL Albumin (3.4-5.0) g/dL Globulin Albumin/Globulin Ratio Urine Color (YELLOW) Urine Appearance (CLEAR) Urine pH (5.0-8.0) Ur Specific [place] Urine Protein (NEGATIVE) mg/dL Urine Glucose (UA) (NEGATIVE) mg/dL Urine Ketones (NEGATIVE) mg/dL Urine Occult Blood (NEGATIVE) Urine Nitrite (NEGATIVE) Urine Bilirubin (NEGATIVE) Urine Urobilinogen (0.2) EU/dL Ur Leukocyte Esterase (NEGATIVE) Urine RBC (NOT SEEN) /HPF Urine WBC (NOT SEEN) /HPF Ur Squamous Epith Cells (NEGATIVE) /HPF Urine Bacteria (NEGATIVE) /HPF Hyaline Casts (NEGATIVE) /HPF Urine Mucus (NEGATIVE) /LPF Result Diagrams: 12/31/18 06:44 12/31/18 06:44 Consult PN Assessment/Plan Procedures: Procedures ANES LWR INTST NDSC NOS (04/18/18) ASSAY OF LACTIC ACID (03/04/18) ASSAY OF LITHIUM (03/04/18) ASSAY OF MAGNESIUM (03/04/18) ASSAY OF NATRIURETIC PEPTIDE (03/04/18) ASSAY OF PARATHORMONE (03/04/18) ASSAY OF URINE OSMOLALITY (03/04/18) ASSAY THYROID STIM HORMONE (03/04/18) C-REACTIVE PROTEIN (03/04/18) COLONOSCOPY AND BIOPSY (04/18/18) COLONOSCOPY SUBMUCOUS NJX (04/18/18) COLONOSCOPY W/LESION REMOVAL (04/18/18) COMPLETE CBC W/AUTO DIFF WBC (03/04/18) COMPREHEN METABOLIC PANEL (03/04/18) CT HEAD/BRAIN W/O DYE (03/04/18) ELECTROCARDIOGRAM TRACING (03/04/18) EMERGENCY DEPT VISIT (03/04/18) EMERGENCY DEPT VISIT (08/11/15) EMERGENCY DEPT VISIT (08/11/15) GAIT TRAINING THERAPY (03/04/18) HYDRATION IV INFUSION INIT (03/04/18) IMMUNIZATION ADMIN (08/11/15) METABOLIC PANEL TOTAL CA (03/04/18) PT EVAL LOW COMPLEX 20 MIN (03/04/18) ROUTINE VENIPUNCTURE (03/04/18) RPR F/E/E/N/L/M 2.6-5.0 CM (08/11/15) TDAP VACCINE 7 YRS/> IM (08/11/15) URINALYSIS AUTO W/SCOPE (03/04/18) X-RAY EXAM CHEST 2 VIEWS (03/04/18) X-RAY EXAM OF PELVIS (01/12/17) (1) Renal failure SNOMED Code(s): 02373097 Code(s): N19 - UNSPECIFIED KIDNEY FAILURE Current Visit: Yes Qualifiers: Renal failure chronicity: acute on chronic Chronic kidney disease stage: stage 4 (severe) (2) Hypercalcemia SNOMED Code(s): 16859984 Code(s): E83.52 - HYPERCALCEMIA Priority: High Current Visit: Yes (3) Acute hypernatremia SNOMED Code(s): 0993292 Code(s): E87.0 - HYPEROSMOLALITY AND HYPERNATREMIA Priority: High Current Visit: Yes (4) Dehydration SNOMED Code(s): 24240861 Code(s): E86.0 - DEHYDRATION Current Visit: No (5) Conversion disorder with seizures or convulsions SNOMED Code(s): 39265833 Code(s): F44.5 - CONVERSION DISORDER WITH SEIZURES OR CONVULSIONS Priority : Medium Current Visit: No (6) Dementia with behavioral disturbance SNOMED Code(s): 8419418841018 Code(s): F03.91 - UNSPECIFIED DEMENTIA WITH BEHAVIORAL DISTURBANCE Priority : High Current Visit: Yes Qualifiers: Dementia type: unspecified type Qualified Code(s): F03.91 - Unspecified dementia with behavioral disturbance (7) STEVEN (generalized anxiety disorder) SNOMED Code(s): 48222898 Code(s): F41.1 - GENERALIZED ANXIETY DISORDER Priority: Medium Current Visit: No (8) GERD (gastroesophageal reflux disease) SNOMED Code(s): 651631734 Code(s): K21.9 - GASTRO-ESOPHAGEAL REFLUX DISEASE WITHOUT ESOPHAGITIS Priority: Low Current Visit: No Qualifiers: Esophagitis presence: esophagitis presence not specified Qualified Code(s) : K21.9 - Gastro-esophageal reflux disease without esophagitis (9) MDD (major depressive disorder) SNOMED Code(s): 866119541 Code(s): F32.9 - MAJOR DEPRESSIVE DISORDER, SINGLE EPISODE, UNSPECIFIED Priority: Low Current Visit: No Qualifiers: Major depression recurrence: unspecified whether recurrent Major depression episode severity: unspecified (10) TBI (traumatic brain injury) SNOMED Code(s): 945035333 Code(s): S06.9X9A - UNSP INTRACRANIAL INJURY W LOC OF UNSP DURATION, INIT Priority: Medium Current Visit: No Qualifiers: Encounter type: sequela Problem List Initiated/Reviewed/Updated: Yes My Orders Last 24 Hours: My Active Orders 12/30/18 17:09 EKG 12 Lead [EKG Documentation Completion] [RC] ROUTINE 12/31/18 07:00 PTH, INTACT [REF] Routine TSH ULTRASENSITIVE [CHEM] Routine Plan: Continue normal saline 150 ml per hour, repeat labs in AM She is tachycardic so likely dehydrated if sodium continues to increase will adjust to LR or 1/2 normal saline tomorrow PTH and TSH ordered with repeat labs in AM Hold Amiloride for now Work up for infection has not revealed a source Check an EKG Continue psych meds, lithium level sent Dr. Olivo to continue to manage the patient as primary Requesting Provider: Dr. Olivo Date Consult Requested: 12/30/18 Reason for Consult: hypercalcemia Patient History Reviewed: Yes Admission H&P Reviewed: Yes Notified Requestor: Yes Time Spent (in minutes): 40
[2018-12-30] MEDS: carBAMazepine 100 MG Cap.ER PO SCH (19:53)
[2018-12-30] MEDS: lamoTRIgine 100 MG Tab PO SCH (19:53)
[2018-12-30] MEDS: Acetaminophen 325 MG Tab PO SCH (19:53)
[2018-12-30] MEDS: Enoxaparin 30 MG/0.3 ML Syringe SUBCUT SCH (19:54)
[2018-12-30] MEDS: CLOZAPINE PO SCH ×2 (19:54→19:55)
[2018-12-30] MEDS: LORazepam 0.5 MG Tab PO SCH (19:54)
[2018-12-30] MEDS: CLOZAPINE 200 MG PO SCH (19:55)
[2018-12-30] MEDS ORDERED: OLANZapine 10 MG Tab PO SCH (20:00)
[2018-12-30] MEDS ORDERED: Docusate Sodium 100 MG Cap PO SCH (20:00)
[2018-12-30] MEDS ORDERED: LORazepam 0.5 MG Tab PO SCH (20:00)
[2018-12-31] MEDS: Sodium Chloride 0.9% 1,000 ML IV SCH (03:06)
[2018-12-31] MEDS ORDERED: Omeprazole 20 MG Cap.CR PO SCH (07:00)
[2018-12-31 07:26] LABS: ANION GAP 14.4 mmol/L (10-20)
[2018-12-31] MEDS: LORazepam 0.5 MG Tab PO SCH ×2 (07:45→19:20)
[2018-12-31] MEDS: lamoTRIgine 100 MG Tab PO SCH ×2 (07:46→19:20)
[2018-12-31] MEDS: Acetaminophen 325 MG Tab PO SCH ×2 (07:48→19:20)
[2018-12-31] MEDS: carBAMazepine 100 MG Cap.ER PO SCH ×2 (07:48→19:19)
[2018-12-31] MEDS: Loratadine 10 MG Tab PO SCH (07:48)
[2018-12-31] MEDS: Docusate Sodium 100 MG Cap PO SCH (07:49)
[2018-12-31] MEDS: RIVASTIGMINE 9.5 MG/24 HR TD SCH (07:52)
[2018-12-31] MEDS ORDERED: Polyethylene Glycol 3350 Powder 17 GM Packet PO SCH (08:00)
[2018-12-31] MEDS ORDERED: Cholecalciferol (Vitamin D3) 1,000 Unit Tab PO SCH (08:00)
[2018-12-31] MEDS ORDERED: Fluticasone Propionate Nasal Spray 16 GM Bottle NASBOTH SCH (08:00)
[2018-12-31] MEDS ORDERED: Lithium Carbonate 450 MG Tab.ER PO SCH (08:00)
--- NOTE | 2018-12-31 08:22 | HP ---
CHIEF COMPLAINT: Weakness. HISTORY OF PRESENT ILLNESS: The patient is a 63-year-old resident of Dr. Galvez , who was brought in today because of "high calcium" and request per family. She had ended up in the hospital in "last February 2012." No family accompanies her to her appointment. ANESTHESIA TECHNICIAN from the residential accompanies her and she comments that over the past week she has been very difficult to walk. She is very weak. She seems to be much more withdrawn, which is not her usual self. Otherwise, no further details are available. The patient apparently had been seen by Melly Valencia a week ago for weakness and was placed on doxycycline; however, there was no evidence of any cough or any fever and she has had lab work done as well. The patient's lab work came back from 12/23/2018 showing her calcium at 11.5, but it is lower than it has been for the last 9 months, the last reading was 12.4 a month ago. Her creatinine was more elevated at 1.78, BUN 28, GFR was down to 29. Her baseline has been more on 30. Sodium is 137, potassium 4.1, blood sugar was 89. Her hemoglobin was 11.5, white blood cell count 11.7, MCV 101, platelet count 262 with 70 segs, and 11 lymphocytes. Her urine had been checked which came back negative for any infection, showed 100 mg/dL protein. To note, the patient has had a chronic elevated calcium level and had had a 24-hour urine calcium done on 05/21/2014, which was normal. Parathyroid level last checked on 03/04/2018 was normal. The patient to note does see Dr. Patel, and her Zyprexa had been stopped on 12/23/2018. To note, when the patient was hospitalized in 02/2018, she had had acute kidney injury with hypernatremia, hypercalcemia with dehydration, acute kidney injury, intermittent diarrhea, somnolence, hypercalcemia, history of traumatic brain injury, history of seizure disorder, history of anxiety, depression, schizoaffective disorder and bipolar disorder. The patient is not able to contribute any history on her part. MEDICATIONS: She is currently on are acetaminophen 650 two times a day for back pain, amiloride 5 mg 1 pill daily, Ativan 0.5 mg 1 pill twice a day, bisacodyl suppository 10 mg every 12 hours as needed for constipation, bisacodyl 5 mg 1 pill every 3 days p.r.n. no bowel movement, calcium with vitamin D3 15/250 one pill twice a day, Clozapine which was 400 mg she takes 1 pill a day, Colace 100 mg she takes 2 pills once a day. She had been on doxycycline 100 mg 1 pill twice a day, Exelon patch 24 mcg by 9.5 transdermally once a day, Imodium A-D 2 mg as needed for diarrhea, lamotrigine 300 mg 2 times a day, lithium extended release 450 mg 1 pill a day, loratadine 10 mg 1 pill daily, milk of magnesia 30 mL by mouth as needed for constipation, Rulox suspension 200/200/20 she gets 30 mL 4 times a day as needed for GI distress, saline nasal spray as needed, Tegretol extended release 300 mg 1 pill once a day, Tegretol extended release 400 mg 1 pill a day, Tylenol 325 every 4 hours as needed for pain. Vicks vapor rub applied to nares b.i.d. p.r.n. ALLERGIES: Lactulose intolerance. PAST MEDICAL HISTORY: The patient has had anoxic brain injury. She has had depression, generalized anxiety disorder, conversion disorder with seizures, unspecified dementia, schizoaffective disorder of bipolar type, eating disorder, personality disorder, lactose intolerance. She has bradycardia. She has had hypermagnesemia, chronic rhinitis, GERD, hyperlipidemia, orthostatic hypotension, known hypernatremia with possible diabetes insipidus. She has had hypercalcemia, somnolence. PAST SURGICAL HISTORY: She has had excision of basal cell skin cancer. She has had a colon polyp. She has had tonsillectomy. FAMILY MEDICAL HISTORY: Mother had ovarian cancer. Father had prostate cancer. Sisters had breast cancer. SOCIAL HISTORY: She is a former smoker. She does not consume alcohol. She had lived at [facility]. She is daughter, Dr. Tobar, a neurologist from [place]. She entered [place] in 04/2014. She had come back to , not certain of exact date. REVIEW OF SYSTEMS: Unable to be obtained from the patient or caregiver who accompanies her. OBJECTIVELY: GENERAL: The patient is sitting in a wheelchair, slumped forward, unable to sit up straight. She is unable to talk. VITAL SIGNS: Show that her weight was not obtainable. Her blood pressure is 128/70, temperature is 98.7, pulse 62, sats are 100%. SKIN: Seems to be a little bit dry. Noted to be pale. HEENT: Mucous membranes are questionably moist. Pupils are equal and react to light. Conjunctivae are clear. HEART: Regular rate. LUNGS: Diminished breath sounds on bases, but no crackles or wheezes. ABDOMEN: Bowel sounds are present. It is soft. LOWER EXTREMITIES: Slender, thin. NEUROLOGICAL:To note, the patient does have a little bit of discoordinated movement of her lower extremities. She is nonverbal. PSCYH: withdrawn, known history of anoxic brain injury. LABORATORY DATA: Her labs that were done at [facility] came back showing that her white blood cell count was 12.8, hemoglobin 12.7, platelet count 412 with 74 segs, 4 bands, 7 lymphocytes, 12 monocytes. Blood gases on room air showed pH 7.40, pCO2 42, PO2 71, bicarb 27, sats are 94. Sodium 147, potassium 4.7, creatinine 1.8, BUN 42, lactic acid 1.3, calcium 13.0, corrected calcium 13.4, AST 16, ALT 19, CRP 0.3, protein 7.2, albumin 3.5. Urinalysis; specific gravity 1.020, protein greater than 300, trace blood, hyaline casts rare, mucus rare. IMPRESSION: 1. Weakness, multifactorial. 2. Hypercalcemia. 3. Acute kidney injury. 4. Bipolar disorder. 5. Seizure disorder. 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 7. History anoxic brain injury. 8. Dehydration. moderate. PLAN: We will hydrate the patient with IV fluids.. We will consult Dr. Aydee Cee, risk control manager to be involved with the patient's care as well. We will hold her oral calcium The patient's code level status is do not resuscitate, do not intubate. To note, she did have a chest x-ray done on 12/30/2018, which showed her chest to be clear without evidence of pneumonia. GM12/30/2018 14:05:43 MODL: 12/30/2018 15:26:08 /[id number] LASHONDA
--- NOTE | 2018-12-31 08:58 | PN ---
Progress Note for RENNY GONZALES Date: 12/31/2018 Room #: VM.215 SUBJECTIVE: The patient is alert, feeling more like her old self. She is not able to articulate well about how she is feeling, but does smile and is much more talkative. The patient was seen by Dr. Aydee Cee in consult last night because of her weakness, hypercalcemia and acute kidney dysfunction. The patient has been started on IV fluids, and her lithium has been held. Her lab work last evening had come back during the night, that her lithium level was high at 1.55, normal being 0.6 to 1.2. The patient was placed on IV hydration. OBJECTIVE: Vital Signs: Her weight today is 63.9 kg, which is up 2.4 kg from yesterday. Temperature is 36.4, pulse is 85, blood pressure is 155/74, respiratory rate is 18, and sats are 99%. General: She is sitting up in bed. She is alert. She is looking around. She does have a tremor of her hand at rest, is a little bit weaker. She does converse a little bit. Heart: Regular rate and rhythm. Lungs: Clear to auscultation. Abdomen: Soft. Bowel sounds are present. Neurologic: The patient is noted to be forgetful. She does have weakness with moving about. She has a tremor with her hands, difficult time pulling the Kleenex box. LABORATORY DATA: Her lab today shows a white blood cell count has improved from 12.8 to 10.4. Hemoglobin has gone from 12.7 down to 10.9, which may be dilutional. Her platelet count is 395. Her blood gases have been checked yesterday on admission and showed pH 7.40, pCO2 of 42, PO2 of 71, bicarb 27, sats are 94 on room air. Her sodium today has gone up to 152 from 147 on admission. Potassium is 4.4 from 4.7 yesterday. Her creatinine is improved to 1.4 from 1.8. BUN has improved to 33 from 42 yesterday. Glucose is 96. Lactic acid on admission was 1.6. Calcium on admission was 13.4 and today it is down to 10.7. Her magnesium on admission was 2.4. LFTs on admission were normal. CRP was 0.3 on admission. TSH was checked this morning and was normal at 0.9. Urinalysis was checked and was noted to have some protein present. Her Tegretol level came back at 5.7, normal range being 4.0 to 12.0. [place] came back high at 1.55 and normal is 0.6 to 1.2. IMPRESSION: 1. [place] toxicity. 2. Hypercalcemia. 3. Acute kidney injury. 4. Dehydration. 5. Anoxic brain injury. 6. History of schizoaffective disorder with bipolar disorder. PLAN: We will look to Dr. Aydee Cee for direction about reducing IV fluids as well as resumption of lithium at current dose versus a reduced dose. The patient will be having PT and OT today to see about strengthening and hopefully anticipate discharge back tomorrow to the snf. GM12/31/2018 08:23:10 MODL: 12/31/2018 08:50:19 /[id number]
--- NOTE | 2018-12-31 09:28 | PN ---
Progress Note for RENNY GONZALES Date: 12/31/2018 Room #: VM.215 SUBJECTIVE: Hospital day #2 on a 63-year-old admitted with acute renal failure and electrolyte disturbance. She did have some coughing. She feels like that is better today. X-ray was negative for pneumonia. She has been afebrile. She also had had poor oral intake, but she ate 50% of her dinner last night. She feels like her stomach is still not quite right, but is not having any pain or nausea, and is going to be eating breakfast today. She only had 350 charted for urine output, but it is possible that she did not have accurate in's and out's. OBJECTIVE: Vital Signs: Her temperature is 97.5, weight is 63.9 kg which is up since yesterday, blood pressure is 155/74, respiratory rate is 18, and O2 is 99 on room air. General: She is in no acute distress. Heart: Regular rate and rhythm with soft murmur. Pulmonary: Lungs sounds are slightly decreased in both bases with mild wheezing. No crackles are appreciated. Abdomen: Nondistended and nontender. Extremities: Warm and dry. No edema. Psychiatric: Mental status, she is alert. She is aware she is at the hospital. LABORATORY DATA: Lab work does show white count improved from 12.8 to 10.4, hemoglobin down to 10.9 probably hemodilution, and platelets of 359. Sodium did go up to 152, chloride of 118, potassium of 4.4, bicarbonate of 24, BUN of 33, creatinine improved from 1.8 to 1.4, calcium down to 10.7, and glucose of 96. TSH was normal at 0.9. [place] was elevated at 1.55. ASSESSMENT AND PLAN: 1. Hypernatremia. The patient is on amiloride at home. It is currently on hold. I would avoid hydrochlorothiazide due to hypercalcemia. We will change her fluids over to half-normal saline at a rate of 175 an hour and repeat tomorrow. 2. Hypercalcemia, improved with IV fluids. We will continue to monitor. 3. Dilutional anemia. Repeat labs in the morning. 4. Acute renal failure, probably due to volume depletion, resolving with IV fluids. She is near her baseline. 5. History of dementia with behavioral disturbance, traumatic brain injury, and convulsion disorder with seizures. She is on her home medications. Dr. Olivo has held the lithium due to elevated levels. The plan, at this point, the patient will continue acute cares. We will change IV fluids to half-normal saline at 175 an hour. PTH is still pending. We will probably re-start amiloride tomorrow or on discharge. No source of infection has been found. She is not on any antibiotics. EKG done yesterday looked okay. Dr. Olivo is to continue managing as primary. Incentive spirometry was started. MKA: 12/31/2018 08:53:36 MODL: 12/31/2018 09:22:15 /[id number] LASHONDA
[2018-12-31] MEDS: Sodium Chloride 0.45% 1,000 ML IV SCH ×3 (09:47→19:23)
[2018-12-31] MEDS: AMILORIDE 5 MG PO SCH (10:26)
[2018-12-31] MEDS: Enoxaparin 30 MG/0.3 ML Syringe SUBCUT SCH (19:19)
[2018-12-31] MEDS: CLOZAPINE PO SCH ×2 (19:21→19:22)
[2018-12-31] MEDS: CLOZAPINE 200 MG PO SCH (19:21)
[2019-01-01] MEDS: Sodium Chloride 0.45% 1,000 ML IV SCH (01:02)
[2019-01-01 06:55] LABS: ANION GAP 13.1 mmol/L (10-20)
[2019-01-01] MEDS: Docusate Sodium 100 MG Cap PO SCH (08:28)
[2019-01-01] MEDS: AMILORIDE 5 MG PO SCH (08:28)
[2019-01-01] MEDS: Loratadine 10 MG Tab PO SCH (08:29)
[2019-01-01] MEDS: LORazepam 0.5 MG Tab PO SCH (08:29)
[2019-01-01] MEDS: carBAMazepine 100 MG Cap.ER PO SCH (08:29)
[2019-01-01] MEDS: RIVASTIGMINE 9.5 MG/24 HR TD SCH (08:29)
[2019-01-01] MEDS ORDERED: LITHIUM CARBONATE 450 MG PO SCH (08:30)
[2019-01-01] MEDS ORDERED: Non-Formulary Medication 1 Each (Amiloride 5 MG) PO SCH (08:30)
[2019-01-01] MEDS: Acetaminophen 325 MG Tab PO SCH (08:30)
[2019-01-01] MEDS: lamoTRIgine 100 MG Tab PO SCH (08:30)
--- NOTE | 2019-01-01 09:05 | PN ---
Progress Note for RENNY GONZALES Date: 01/01/2019 Room #: VM.215 SUBJECTIVE: The patient is much more clearer and more at her baseline mental functioning. She has been fairly active in the room. She offers no concerns of pain or complaints. When she was seen by Physical Therapy, they stated that the patient has been able to walk with staff. The patient's legs were little bit jumpy as her legs gave out. OBJECTIVE: Vital Signs: Her weight is 64.1, it is up 0.2 kg from yesterday. Her temperature is 36.4, pulse is 85, blood pressure is 134/80, respiratory rate is 18, sats are 97%. General: She is alert, calm, sitting in the bed. She will say yes or no. She does have some jerkiness of her extremities. Heart: Regular rate and rhythm. Lungs: Clear. Abdomen: Soft. LABORATORY DATA: Her lab today shows that her white blood cell count is 10.1, hemoglobin 10.4 with platelets 371. Her sodium is stable at 150, potassium 4.1, creatinine has improved to 1.2, GFR is 45. Her calcium is down to 9.7. Her lithium level came back last evening at 0.82, which is within normal range. IMPRESSION: 1. [place] toxicity. 2. Hypercalcemia, improved. 3. Dehydration, improved. 4. Bipolar disorder. 5. Anoxic brain injury. PLAN: I do feel the patient will be able to return to [facility] today. She can continue to receive physical therapy over there. We will resume her lithium. I will confer with Internal Medicine about what dose that should be. GM01/01/2019 08:17:09 MODL: 01/01/2019 08:33:08 /[id number]
--- NOTE | 2019-01-01 11:10 | PN ---
Progress Note for RENNY GONZALES Date: 01/01/2019 Room #: VM.215 SUBJECTIVE: This is a 63-year-old admitted with acute renal failure with dehydration, hypernatremia and hypercalcemia. IV fluids were switched to half- normal saline yesterday and her sodium improved to 150. She has had multiple higher sodium readings in the past. She is a little sleepy this morning, but otherwise has been eating well and drinking well. She is denying any pain. Did have 100% of her bedtime snack, 50% of dinner. She is not coughing as much. She is not hypoxic. No infection was found. Did have a slight drop down in her hemoglobin to 10.4, but that was probably delusional. No acute signs of bleeding. Otherwise, family had requested her lithium to be restarted. Dr. Olivo has been managing. It sounds like the level was drawn after she had had her morning dose. Level was repeated and was within range. OBJECTIVE: Vital Signs: Weight this morning 64.1 kg, temperature 97.6, pulse 85, blood pressure 134/80, respiratory rate 18, O2 of 97% on room air. General: She is in no acute distress. Heart: Regular rate and rhythm with murmur. Lungs: Lung sounds are clear to auscultation with limited effort. Abdomen: Positive bowel sounds. Soft, nontender. Extremities: Warm and dry. No edema. ASSESSMENT: 1. Acute renal failure, resolved with IV fluids. 2. Hypercalcemia, probably worsened by dehydration, improved with fluids. 3. Acute hypernatremia. 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 She can restart her amiloride on discharge. 4. [place] toxicity that was probably due to drawing the level after having the med. She will resume her home dose and follow up with her Psychiatry. 5. Bipolar disorder. 6. History of traumatic brain injury. PLAN: At this point, I feel it is okay to discharge the patient back to the [facility] with followup lab work in 1 week. She will be back on her same dose of amiloride, which was held here. No infection was found during her stay. MKA: 01/01/2019 10:17:34 MODL: 01/01/2019 10:51:27 /[id number] LASHONDA
--- NOTE | 2019-01-01 12:21 | DISCH ---
PRIMARY DIAGNOSES: 1. [place] toxicity. 2. Dehydration. 3. Hypercalcemia, which is chronic. 4. Chronic kidney disease. 5. Acute kidney injury. 6. Dehydration, mild. 7. Recent upper respiratory infection. 8. Anoxic brain injury. 9. Bipolar disorder. 10.Seizure disorder. 11.Chronic hyponatremia. SUMMARY OF ADMIT HISTORY AND PHYSICAL: The patient is a 63-year-old, resident of [facility], resident of Dr. Fernandez, who was brought into the clinic because of extreme weakness, difficulty walking, and change in her baseline. The patient had been seen 1 week prior for some respiratory congestion, cough. X-ray at that time had been negative. White blood cell count was 12.4. So, she was started on doxycycline for a week. The patient had a calcium level that did come back elevated at 11.5, and so she was made to have a clinic appointment. To note, the patient was seen by Dr. Lin, Psychiatry. The patient had somewhat of a similar episode in February 2018, which was related to lithium toxicity, so the patient was felt in need of closer care, so she was placed at [facility] for hospitalization as lithium levels would not come back for a while, she was profoundly weak, difficulty sitting up.She had been placed on amiloride at that time. PHYSICAL EXAMINATION: General: Slumped forward in chair. Vital Signs: Her blood pressure is 129/70, pulse was 62. Heart: Regular rate. Lungs: Clear. Abdomen: Soft. Neurologic: She had discoordinated movements, was very weak, nonverbal. LABORATORY DATA: That were done at admission showed her white blood cell count 12.8, hemoglobin 12.7, platelets 412, 74 segs, 4 bands. Blood gases on room air, pH 7.40, pCO2 of 42, PO2 of 71, bicarb 27, sats 94. Sodium 147, potassium 4.7, creatinine 1.8, BUN 42, lactic acid 1.3, calcium 13.0 with corrected calcium 13.4, AST 16, ALT 19, CRP 0.3, albumin 3.5. Urinalysis came back normal. SUMMARY OF HOSPITAL COURSE: The patient was given IV fluids. Her calcium supplements were held. Her amiloride was held. Her lithium was held. She was placed on Lovenox for deep vein thrombosis prophylaxis. Chest x-ray was repeated to make certain that there was no occult pneumonia. It was negative for infiltrate. The patient had Internal Medicine consult with Dr. Aydee Cee. The patient, the next morning was noted to be much more alert and had worked with physical therapy, was noted to be somewhat weak with transfers and walking. Her vital signs stayed very stable. Her IV fluids had been reduced down for rate. By morning of 01/01/2019, the patient was felt to be about her baseline other than slightly weak with her legs. Family was concerned about her being resumed on lithium because of her behaviors that get quite disordered if she is not on lithium. [place] level came back initially at 1.55 with having taken a dose that morning, normal range is 0.6 to 1.2 on 12/30. Repeat lithium level on 12/31 came back lower at 0.82. Her carbamazepine level came back normal at 5.7. Her calcium level greatly improved with improving to 10.7 by 12/31, and on 01/01, it was down to 9.7. Her creatinine had improved to 1.2 from 1.8 on admission. Her sodium had gone up to 150, which was felt possibly due to having held the amiloride. Potassium was 4.1 on 01/01. GFR was 45. Hemoglobin was 10.4, which had actually dropped slightly. DISCHARGE MEDICATIONS: The patient's medications at discharge will be all of her same medications except for her doxycycline that has been completed and that was held at admission. It was most likely the cause of her lithium toxicity. Her calcium will be held. Otherwise, her medications will be the same as admit, which will be: 1. Bisacodyl 5 mg tablet 1 pill daily p.r.n. 2. Clozapine 400 mg daily. 3. Exelon patch, 1 patch daily. 4. Loratadine 10 mg 1 pill daily. 5. Bisacodyl 10 mg suppository p.r.n. every 12 hours constipation. 6. Tylenol 325 two pills twice a day. 7. Imodium AD 2 mg every 24 hours. 8. Docusate 100 mg capsule, 2 pills daily. 9. Carbamazepine 100 mg extended release, she takes 400 mg at bedtime. 10.Carbamazepine extended release 100 mg, she takes 300 mg in the morning. 11.Lamotrigine 100 mg 3 pills twice a day. 12.Lorazepam 0.5 mg b.i.d. 13.[place] carbonate extended release 450 mg 1 pill daily. 14.Tylenol 325 q.4 h. p.r.n. 15.Milk of magnesia 30 mL daily p.r.n. 16.Rulox 355 mL oral suspension 4 times a day p.r.n. 17.Vicks VapoRub p.r.n. 18.Saline nasal spray q.4 h. p.r.n. 19.Amiloride 5 mg tablets daily. DISCHARGE INSTRUCTIONS: The patient will work with physical therapy. Her diet will stay the same. To note, the patient will need lab work in a week's time of a basic metabolic profile, a CBC, and a lithium level. The results can come to me as Dr. Galvez will not be back yet. Dr. Lin, psychiatrist, in case he may want to consider changing her chronic lithium dose; however, it was noted that in November, her lithium dose was stable and so most likely this was offset by the use of doxycycline. GM01/01/2019 08:38:09 MODL: 01/01/2019 09:16:12 /[id number] MTDD
== END 2019-01-01 10:15 | DRG 918 ==
LOC: VM.MS 11:56
PROVIDERS: ADMIT Family Medicine; ATTEND Family Medicine
PROC: F08Z4ZZ Home Management Treatment (ICD-10-PCS; principal; 2018-12-31)
DX: T56.891A Toxic effect of other metals, accidental (unintentional), initial encounter (principal); N17.9 Acute kidney failure, unspecified; E87.0 Hyperosmolality and hypernatremia; F03.91 Unspecified dementia, unspecified severity, with behavioral disturbance; N18.4 Chronic kidney disease, stage 4 (severe); Z66 Do not resuscitate; F32.9 Major depressive disorder, single episode, unspecified; F41.1 Generalized anxiety disorder; F44.5 Conversion disorder with seizures or convulsions; F25.0 Schizoaffective disorder, bipolar type; F60.9 Personality disorder, unspecified; K21.9 Gastro-esophageal reflux disease without esophagitis; E78.5 Hyperlipidemia, unspecified; E83.52 Hypercalcemia; E86.0 Dehydration; J30.9 Allergic rhinitis, unspecified; E78.00 Pure hypercholesterolemia, unspecified; K59.09 Other constipation; F42.9 Obsessive-compulsive disorder, unspecified; M81.0 Age-related osteoporosis without current pathological fracture; D64.89 Other specified anemias; S06.9X0S Unspecified intracranial injury without loss of consciousness, sequela; Z88.8 Allergy status to other drugs, medicaments and biological substances; Z86.010 Personal history of colon polyps; Z85.828 Personal history of other malignant neoplasm of skin; Z87.891 Personal history of nicotine dependence; Z79.899 Other long term (current) drug therapy; Z95.0 Presence of cardiac pacemaker
CPT/HCPCS: 36415; 36600; 71045; 80048; 80053; 80156; 80178; 81001; 82803; 83605; 83735; 83970; 84443; 85025; 86140; 93005; 97161-GP; 97165-GO; 97530-GP; A9270-GY; J1650; J7030

== ENCOUNTER 2019-03-13 08:36 | Day surgery (SDC) | payer MEDICARE, MEDICAID ==
[2019-03-13] MEDS ORDERED: Propofol 200 MG/20 ML SDV ONE (10:29)
[2019-03-13] MEDS ORDERED: fentaNYL 100 MCG/2 ML SDV ONE (10:29)
[2019-03-13] MEDS ORDERED: Midazolam 1 MG/ML 2 ML SDV ONE (10:29)
[2019-03-13] MEDS ORDERED: Simethicone Drops 40 MG/0.6 ML 30 ML Bottle ONE (11:19)
--- NOTE | 2019-03-13 12:46 | OR ---
PRE-OPERATIVE DIAGNOSIS: History of colon polyps. Last colonoscopy was 04/2018 and showed atypical villous adenoma which was sessile in nature and about 2 cm in size. This was located near the hepatic flexure and was tattooed. The patient also has history of redundant colon. POST-OPERATIVE DIAGNOSES: 1. Residual/recurrent villous-appearing sessile polyp located at about 60 cm from the anal verge. This is located at the hepatic flexure turn and is probably about 1 cm in size or more and located across both sides of a haustral fold. Its location makes for more difficult access. This is directly at the site of previous polyp removal and previous tattooed area. Cold biopsy x4 bites taken. 2. A 2 mm polyp at 55 cm, removed with cold forceps. 3. Redundant colon. 4. Mild hemorrhoids. PROCEDURE: Colonoscopy with polypectomy x1 and cold biopsy x1 site. ANESTHESIA: Monitored anesthesia care. BOWEL PREP: Good to fair. DESCRIPTION OF PROCEDURE: Summer is a 63-year-old female who was brought to the endoscopy suite after discussing risks and benefits of the procedure. Informed consent was obtained for conscious sedation and colonoscopy with or without biopsy and/or polypectomy. We also discussed possibility of missed lesions. Pre-procedure exam was unremarkable. IV, oxygen, and monitors were placed. The patient was placed in the left lateral decubitus position. Sedation was administered and a digital rectal exam performed was unremarkable. Colonoscope was passed into the rectum and slowly advanced all the way to the cecum. Cecum was viewed and photographed. The colonoscope was slowly withdrawn and the mucosa was closed observed in a direct circumferential manner. The ascending colon was unremarkable until right at the hepatic flexure turn. At this site, there was residual/recurrent villous-appearing sessile polyp. This was about a centimeter in size or more and was located across both sides of the haustral fold making access to the entire polyp more difficult. Cold biopsy x4 bites taken. Previous tattooed markings are easily seen. Transverse colon revealed 2 mm polyp at 55 cm, removed with cold forceps. The descending colon was unremarkable. The sigmoid colon was unremarkable. Retroflexion was performed and rectal mucosa remarkable for some mild internal hemorrhoids, not acutely inflamed. Scope was removed. The patient tolerated the procedure well. The patient was monitored until that baseline status. Discharge instructions were reviewed and the patient was discharged in good condition. COMPLICATIONS: None. TOTAL TIME: 31 minutes. ESTIMATED BLOOD LOSS: 1 to 2 mL. RECOMMENDATIONS/FOLLOWUP: We will await results of path report. I am going to refer this patient to Colorectal Surgery for removal of this polyp given its difficult location, recurrent nature, and history of advanced atypical polyp on previous path report. I would like to kindly thank Dr. Galvez for this referral. DMB: 03/13/2019 11:57:32 MODL: 03/13/2019 12:40:21 /[id number] MTDD
== END 2019-03-13 12:55 ==
LOC: VM.SDS 08:36
PROVIDERS: ATTEND Family Medicine
DX: D12.3 Benign neoplasm of transverse colon (principal); K64.8 Other hemorrhoids; Q43.8 Other specified congenital malformations of intestine; E78.5 Hyperlipidemia, unspecified; E83.52 Hypercalcemia; K21.9 Gastro-esophageal reflux disease without esophagitis; F03.90 Unspecified dementia, unspecified severity, without behavioral disturbance, psychotic disturbance, mood disturbance, and anxiety; F31.9 Bipolar disorder, unspecified; G40.909 Epilepsy, unspecified, not intractable, without status epilepticus; M81.0 Age-related osteoporosis without current pathological fracture; N18.4 Chronic kidney disease, stage 4 (severe); Z91.018 Allergy to other foods; Z95.0 Presence of cardiac pacemaker; Z86.010 Personal history of colon polyps; Z87.891 Personal history of nicotine dependence; Z79.899 Other long term (current) drug therapy
CPT/HCPCS: 00812; J2250; J2704; J3010; J7120

== ENCOUNTER 2021-12-13 12:00 | Emergency (ER) | payer MEDICARE, MEDICAID ==
[2021-12-13 13:33] LABS: ANION GAP 11.7 mmol/L (5-15); CHLORIDE,CL 109 mmol/L (98-107); SODIUM,NA 143 mmol/L (136-145)
[2021-12-13] MEDS ORDERED: Sodium Chloride 0.45% 1,000 ML IV SCH (13:45)
== END 2021-12-13 15:05 | disposition home or self-care (01) ==
LOC: VM.ED 12:00
DX: R53.83 Other fatigue (principal); E83.52 Hypercalcemia; E78.00 Pure hypercholesterolemia, unspecified; Z95.0 Presence of cardiac pacemaker; Z91.011 Allergy to milk products
CPT/HCPCS: 70450; 80053; 80178; 81001; 82550; 83615; 84484; 85025; 86140; 93005; 99284; 99284-25

== ENCOUNTER 2022-12-24 17:17 | Inpatient (IN) | payer MEDICARE, MEDICAID ==
[2022-12-24] MEDS ORDERED: Sodium Chloride 0.9% 10 ML Syringe FLUSH PRN (18:04)
[2022-12-24] MEDS ORDERED: Sodium Chloride 0.9% 1,000 ML IV SCH (18:15)
[2022-12-24 19:43] LABS: CHLORIDE,CL 119 mmol/L (98-107); SODIUM,NA 153 mmol/L (136-145)
[2022-12-24 19:49] LABS: PTT,PARTIAL THROMBOPLSTIN TIME 31.8 SEC (23.6-33.6)
[2022-12-24 19:56] LABS: ANION GAP 21.4 mmol/L (5-15); ESTIMATED GFR 30 mL/min (>=60)
[2022-12-24] MEDS ORDERED: Ondansetron 4 MG/2 ML SDV IV PRN (21:51)
[2022-12-24] MEDS ORDERED: Acetaminophen 325 MG Tab PO PRN (21:51)
[2022-12-24] MEDS ORDERED: Flumazenil 0.1 MG/ML 5 ML MDV IVPUSH PRN (21:51)
[2022-12-24] MEDS ORDERED: carBAMazepine 100 MG Cap.ER PO ONE (21:56)
[2022-12-24] MEDS ORDERED: Dextrose 5%-0.45% NaCl 1,000 ML IV SCH (22:00)
[2022-12-24] MEDS ORDERED: Haloperidol Lactate 5 MG/ML SDV IM PRN (22:08)
[2022-12-24] MEDS: Heparin Sodium 5,000 Units/ML Vial SUBCUT SCH (23:27)
[2022-12-24] MEDS: Famotidine 20 MG/2 ML SDV IVPUSH SCH (23:27)
[2022-12-24] MEDS: LORazepam 0.5 MG Tab PO SCH (23:28)
[2022-12-24] MEDS: lamoTRIgine 100 MG Tab PO SCH (23:28)
[2022-12-25] MEDS: LORazepam 2 MG/ML SDV IVPUSH PRN ×2 (00:25→07:58)
[2022-12-25] MEDS: Sodium Chloride 0.45% 1,000 ML IV SCH ×4 (04:34→23:14)
[2022-12-25] MEDS: Heparin Sodium 5,000 Units/ML Vial SUBCUT SCH ×3 (06:00→21:23)
[2022-12-25 07:20] LABS: ANION GAP 17.6 mmol/L (5-15)
[2022-12-25] MEDS: Famotidine 20 MG/2 ML SDV IVPUSH SCH (08:03)
[2022-12-25] MEDS: lamoTRIgine 100 MG Tab PO SCH ×2 (08:06→21:26)
[2022-12-25] MEDS: LORazepam 0.5 MG Tab PO SCH ×2 (08:06→21:46)
[2022-12-25] MEDS ORDERED: Desmopressin 4 MCG/1 ML Amp SUBCUT ONE ×2 (08:18→16:29)
[2022-12-25] MEDS ORDERED: Acetaminophen 325 MG Tab PO PRN (12:10)
[2022-12-25] MEDS ORDERED: Eucalyptus Oil/Menthol/Camphor [Vicks Vaporub Ointment] TOP PRN (12:10)
[2022-12-25] MEDS ORDERED: Loperamide 2 MG Cap PO PRN (12:10)
[2022-12-25] MEDS ORDERED: Bisacodyl 10 MG Supp RECTAL PRN (12:10)
[2022-12-25] MEDS: carBAMazepine 100 MG Cap.ER PO SCH ×2 (16:18→21:27)
[2022-12-25] MEDS: Lithium Carbonate 300 MG Tab.ER PO SCH (16:18)
[2022-12-25] MEDS ORDERED: Flumazenil 0.1 MG/ML 5 ML MDV IVPUSH PRN (16:56)
[2022-12-25] MEDS: cefTRIAXone 1 GM Vial IVPUSH SCH (18:03)
[2022-12-25] MEDS ORDERED: LORazepam 2 MG/ML SDV IVPUSH SCH (21:00)
[2022-12-26] MEDS: Sodium Chloride 0.45% 1,000 ML IV SCH (04:10)
[2022-12-26] MEDS: LORazepam 2 MG/ML SDV IVPUSH PRN (05:11)
[2022-12-26] MEDS: Heparin Sodium 5,000 Units/ML Vial SUBCUT SCH ×3 (05:31→21:00)
[2022-12-26] MEDS ORDERED: Desmopressin 4 MCG/1 ML Amp SUBCUT ONE (08:30)
[2022-12-26] MEDS: lamoTRIgine 100 MG Tab PO SCH ×2 (08:53→20:09)
[2022-12-26] MEDS: Lithium Carbonate 300 MG Tab.ER PO SCH (08:53)
[2022-12-26] MEDS: LORazepam 0.5 MG Tab PO SCH ×2 (08:53→20:09)
[2022-12-26] MEDS: AMILORIDE 5 MG PO SCH (08:53)
[2022-12-26] MEDS: carBAMazepine 100 MG Cap.ER PO SCH ×2 (08:53→20:08)
[2022-12-26] MEDS: RIVASTIGMINE TOP SCH (08:53)
[2022-12-26] MEDS: cefTRIAXone 1 GM Vial IVPUSH SCH (08:53)
[2022-12-26] MEDS: Loratadine 10 MG Tab PO SCH (08:53)
[2022-12-26] MEDS ORDERED: Famotidine 20 MG Tab PO SCH (21:00)
[2022-12-27] MEDS: Heparin Sodium 5,000 Units/ML Vial SUBCUT SCH (06:08)
[2022-12-27 07:29] LABS: ANION GAP 15.2 mmol/L (5-15)
[2022-12-27] MEDS ORDERED: Desmopressin 4 MCG/1 ML Amp SUBCUT ONE (08:26)
[2022-12-27] MEDS: LORazepam 0.5 MG Tab PO SCH (09:03)
[2022-12-27] MEDS: lamoTRIgine 100 MG Tab PO SCH (09:04)
[2022-12-27] MEDS: Loratadine 10 MG Tab PO SCH (09:04)
[2022-12-27] MEDS: carBAMazepine 100 MG Cap.ER PO SCH (09:05)
[2022-12-27] MEDS: AMILORIDE 5 MG PO SCH (09:06)
[2022-12-27] MEDS: RIVASTIGMINE TOP SCH (09:08)
[2022-12-27] MEDS: Lithium Carbonate 300 MG Tab.ER PO SCH (09:13)
== END 2022-12-27 12:35 | DRG 178 ==
LOC: VM.ED 17:17 → VM.MS 20:13
PROVIDERS: ADMIT Internal Medicine; ATTEND Internal Medicine
PROC: 8E0ZXY6 Isolation (ICD-10-PCS; principal; 2022-12-24)
DX: U07.1 COVID-19 (principal); E44.0 Moderate protein-calorie malnutrition; N39.0 Urinary tract infection, site not specified; N18.4 Chronic kidney disease, stage 4 (severe); E87.0 Hyperosmolality and hypernatremia; E87.1 Hypo-osmolality and hyponatremia; E86.0 Dehydration; F63.9 Impulse disorder, unspecified; K59.09 Other constipation; G40.909 Epilepsy, unspecified, not intractable, without status epilepticus; E78.5 Hyperlipidemia, unspecified; F41.1 Generalized anxiety disorder; B96.20 Unspecified Escherichia coli [E. coli] as the cause of diseases classified elsewhere; E78.00 Pure hypercholesterolemia, unspecified; M81.0 Age-related osteoporosis without current pathological fracture; G30.9 Alzheimer's disease, unspecified; F02.80 Dementia in other diseases classified elsewhere, unspecified severity, without behavioral disturbance, psychotic disturbance, mood disturbance, and anxiety; K21.9 Gastro-esophageal reflux disease without esophagitis; F25.0 Schizoaffective disorder, bipolar type; F42.9 Obsessive-compulsive disorder, unspecified; E83.42 Hypomagnesemia; F31.9 Bipolar disorder, unspecified; Z91.011 Allergy to milk products; F60.9 Personality disorder, unspecified; Z98.890 Other specified postprocedural states; Z90.89 Acquired absence of other organs; Z68.21 Body mass index [BMI] 21.0-21.9, adult; Z79.899 Other long term (current) drug therapy; Z95.0 Presence of cardiac pacemaker; Z87.820 Personal history of traumatic brain injury
CPT/HCPCS: 36415; 70450; 71045; 72040; 80048; 80053; 80069; 80178; 81001; 82140; 82947; 83605; 83735; 84100; 84295; 85025; 85610; 85730; 86140; 87040; 87077; 87086; 87088; 87186; 96360; 97161-GP; 99284; 99285-25; A9270-GY; J0696; J1630; J1644; J2060; J2597; J3490; J7030; J7042